=== PATIENT | female | born 1970 | race American Indian/Alaskan Native ===

== ENCOUNTER 2017-10-07 08:00 | Outpatient (CLI) | payer MEDICAID, MEDICARE ==
--- NOTE | 2017-10-07 09:14 | Mammography Report ---
BILATERAL MAMMOGRAM: FINDINGS: The breast tissue is extremely dense (>75% glandular). This may lower the sensitivity of mammography. No mass, distortion, suspicious calcification, or skin change is seen. There is no significant change when compared to her prior exams in February 2015. CAD was utilized. IMPRESSION: Negative mammogram. There is no mammographic evidence of malignancy. RECOMMENDATION: Follow-up per ACS guidelines. BI-RADS CATEGORY: 1 = Negative ACR BI-RADS MAMMOGRAPHIC CODES: 0 = Needs additional imaging evaluation; 1 = Negative; 2 = Benign; 3 = Probably benign; 4 = Suspicious; 5 = Malignant; 6 = Known biopsy-proven malignancy COMMENT: 1. Dense breast tissue, i.e., adenosis, fibrocystic changes, etc., may obscure an underlying neoplasm. 2. Approximately 10% of cancers are not detected with mammography. 3. A negative mammography report should not delay biopsy if a clinically suspicious mass is present. COMMENT: Patient follow-up letters are generated in [employer].
== END 2017-10-07 08:01 | disposition home or self-care (01) ==
LOC: SPVWC 08:00 → MAMMO 08:01
PROVIDERS: ATTEND Obstetrics & Gynecology
DX: Z12.31 Encounter for screening mammogram for malignant neoplasm of breast (principal)
CPT/HCPCS: 77067

== ENCOUNTER 2018-06-25 14:29 | Observation (INO) | payer MEDICAID ==
--- NOTE | 2018-06-25 14:56 | History and Physical Report ---
History of Present Illness Date of examination: 06/25/18 Date of admission: 06/25/2018 Chief complaint: fatigue and heavy vaginal bleeding History of present illness: 47y/o with a known history of uterine fibroids. She presents to the office with the complaint of worsening fatigue and malaise. She has experienced palpitations with exertion. Unable to perform basic tasks. Her vaginal bleeding is worsening. She has elected to undergo a robotic hysterectomy that is scheduled for July 08. H/H in the office today is 5.7/19.4 respectively. Past History Past Medical History: other (anemia; uterine fibroids) Past Surgical History: no surgical history Social history: single - Obstetrical History : 2 Para: 2 Hx # Term Pregnancies: 1 Number of Pregnancies: 1 Spontaneous Abortions: 0 Induced : 0 Number of Living Children: 2 Medications and Allergies Allergies Allergy/AdvReac Type Severity Reaction Status Date / Time No Known Allergies Allergy Unverified 02/20/15 09:39 Review of Systems Constitutional: fatigue, weakness, malaise, lethargy Genitourinary: vaginal bleeding - Physical Exam Breasts: Positive: deferred Cardiovascular: Regular rate Lungs: Positive: Clear to auscultation Abdomen: Positive: normal appearance Results All other labs normal. Assessment and Plan - Patient Problems (1) Severe anemia Status: Acute Plan to address problem: admit for transfusion of blood products (2) Menorrhagia Status: Acute (3) Fatigue Status: Acute
[2018-06-25] MEDS ORDERED: ZOFRAN IV PRN (14:57)
[2018-06-25] MEDS ORDERED: TYLENOL PO PRN (14:57)
[2018-06-25] MEDS ORDERED: NACL 0.9% 500 ML 500 ML IV ONE (14:57)
[2018-06-25] MEDS ORDERED: BENADRYL PO ONE (14:57)
[2018-06-25] MEDS ORDERED: D5LR 1,000 ML IV SCH (15:00)
[2018-06-26] MEDS ORDERED: NACL 0.9% 500 ML 500 ML IV ONE (01:00)
[2018-06-26] MEDS ORDERED: BENADRYL PO ONE (04:00)
--- NOTE | 2018-06-26 08:35 | Progress Note ---
Assessment and Plan A: Symptomatic Anemia Uterine Fibroids New-onset bilateral leg pain with questionable history of DVT last year P: Obtain bilateral lower cavity Doppler studies immediately Plan to request medical records to clarify possible history of DVT Plan to discharge home if Doppler study is normal after transfusion of 3 units of packed red blood cells Subjective - Subjective Date of service: 06/26/18 Principal diagnosis: Symptomatic anemia Interval history: This morning, the patient complains of bilateral calf pain left greater than right. She also now reports a history of lower left extremity DVT last year. She reports that she does have leg pain each night but usually goes away by sunrise. She says that she typically takes pain medication such as ibuprofen to alleviate the pain when she is at home. She denies vaginal bleeding today. Patient reports: appetite normal, voiding normally, ambulating normally Objective - Vital Signs Latest vital signs: Vital Signs Temp Pulse Pulse Resp BP BP Pulse Ox 06/26/18 08:10 98.5 F 70 18 94/61 99 06/26/18 07:55 98.7 F 75 20 92/57 99 06/26/18 05:11 98.6 F 83 20 100/67 100 06/26/18 02:08 98.4 F 20 96/60 100 06/26/18 01:38 98.6 F 77 20 95/60 100 06/26/18 01:29 98.6 F 77 20 95/60 100 06/26/18 01:08 98.6 F 75 20 95/55 99 06/26/18 00:53 98.6 F 78 20 98/56 06/25/18 22:00 83 20 06/25/18 20:35 98.3 F 87 18 91/57 98 06/25/18 19:53 78 18 Intake and Output 06/25/18 06/26/18 06/26/18 22:59 06:59 14:59 Intake Total 690 370 0 Output Total 1 300 Balance 689 70 0 Intake: Oral 240 Intake, Free Water 120 Blood Product 250 0 Leukoreduced Red Blood 250 Cells Unit [id number] Leukoreduced Red Blood 0 Cells Unit [id number] Other 450 Output: Urine 1 300 Void 1 300 Other: Intake, Other Source Saline Solution Total, Intake Amount 690 Total, Output Amount 1 300 Voiding Method Toilet Toilet # Voids 3 Weight 56.245 kg - Exam Breasts: Present: deferred Cardiovascular: Present: Regular rate Lungs: Present: Clear to auscultation Abdomen: Present: soft Extremities: Present: other (Absent Homans). Absent: tenderness - Labs Labs: Abnormal lab results 06/25/18 Range/Units 20:00 Crossmatch See Detail
[2018-06-26 13:08] VITALS: BP 98/61
--- NOTE | 2018-06-26 15:18 | Discharge Summary ---
Providers - Providers Date of Admission: 06/25/18 17:47 Date of discharge: 06/26/18 Attending physician: JULIANNE BARTON Primary care physician: JULIANNE BARTON Hospitalization Reason for admission: other (symptomatic anemia) Procedure details: Blood transfusion Discharge diagnosis: other (symptomatic anemia) Hospital course: The patient was admitted for symptomatic anemia with plans for hysterectomy in a few weeks secondary to symptomatic uterine fibroids. During her hospitalization, the patient complained of bilateral leg pain which was evaluated with bilateral Doppler studies which were negative for DVT. The patient received 3 units of packed red blood cells and a post transfusion hemoglobin and hematocrit were collected. The patient was then discharged home with plans to follow-up for her preoperative visit with Dr. Velma Gaytan as scheduled. Condition at discharge: Stable Disposition: DC-01 TO HOME OR SELFCARE - Discharge Diagnoses (1) Fibroid uterus Status: Acute Qualifiers: Uterine leiomyoma location: unspecified location Qualified Code(s): D25.9 - Leiomyoma of uterus, unspecified (2) Fatigue Status: Acute Qualifiers: Fatigue type: unspecified Qualified Code(s): R53.83 - Other fatigue (3) Menorrhagia Status: Acute Qualifiers: Menorrahagia type: with regular cycle Qualified Code(s): N92.0 - Excessive and frequent menstruation with regular cycle (4) Severe anemia Status: Acute Plan - Provider Discharge Summary Activity: routine Diet: routine Additional instructions: [] Smoking cessation referral if applicable(refer to patient education folder for contact #) [] Refer to [facility]'s [facility] Booklet Call your doctor immediately for: * Fever > 100.5 * Heavy vaginal bleeding ( >1 pad per hour) * Severe persistent headache * Shortness of breath * Reddened, hot, painful area to leg or breast * Drainage or odor from incision. * Keep incision clean and dry at all times and follow doctor's instructions regarding bathing/showering - Follow up plan Follow up: JULIANNE BARTON MD [Primary Care Provider] - 07/06/18 (His follow-up with Dr. Barton at your previously scheduled preoperative appointment)
[2018-06-26 15:31] LABS: Hematocrit 30.9 % (30.3-42.9); Hemoglobin 9.7 gm/dl (10.1-14.3)
== END 2018-06-26 17:10 | disposition home or self-care (01) ==
LOC: 3A 14:29 → UNDOADMOB 14:29 → OB 17:47
PROVIDERS: ADMIT Obstetrics & Gynecology; ATTEND Obstetrics & Gynecology
DX: D64.9 Anemia, unspecified (principal); N92.0 Excessive and frequent menstruation with regular cycle; R53.83 Other fatigue
CPT/HCPCS: 36415; 36430; 85014; 85018; 86850; 86900; 86901; 86920; 93970; G0378; G0379; J7040; J7121; P9016

== ENCOUNTER 2018-07-08 06:46 | Observation (INO) | payer MEDICAID ==
[2018-07-06 11:28] LABS: Hematocrit 32.8 % (30.3-42.9); Mean Corpuscular HGB Conc 31 % (30-34); Mean Corpuscular Hemoglobin 22 pg (28-32); Mean Corpuscular Volume 71 fl (79-97); Platelet Count 204 K/mm3 (140-440); Red Blood Count 4.62 M/mm3 (3.65-5.03); Red Cell Distribution Width 30.4 % (13.2-15.2)
[2018-07-06 11:29] LABS: Basophils % (Auto) 0.6 % (0.0-1.8); Eosinophils # (Auto) 0.1 K/mm3 (0.0-0.4); Lymphocytes # (Auto) 1.6 K/mm3 (1.2-5.4); Lymphocytes % (Auto) 24.8 % (13.4-35.0); Monocytes # (Auto) 0.6 K/mm3 (0.0-0.8)
--- NOTE | 2018-07-06 12:11 | Anesthesia Consultation ---
Anesthesia Consult and Med Hx Date of service: 07/06/18 - Airway Anesthetic Teeth Evaluation: Good ROM Head & Neck: Adequate Mental/Hyoid Distance: Adequate Mallampati Class: Class I Intubation Access Assessment: Good - Pulmonary Exam CTA: Yes - Cardiac Exam Cardiac Exam: RRR - Pre-Operative Health Status ASA Pre-Surgery Classification: ASA2 Proposed Anesthetic Plan: General Nerve Block: tap block - Central Nervous System Hx Psychiatric Problems: No - Hematic Hx Anemia: Yes - Other Systems Hx Alcohol Use: Yes (Occas) Hx Cancer: No
[~2018-07-08 06:46] MED LIST: LACTATED RINGERS 1,000 ML IV SCH; NEURONTIN PO NR; SUBLIMAZE IV ONE; VERSED IV NR
--- NOTE | 2018-07-08 07:40 | History and Physical Report ---
History of Present Illness Date of examination: 07/08/18 Date of admission: 07/08/2018 Chief complaint: dysfunctional bleeding and fibroids History of present illness: 47y/o with dysfunctional uterine bleeding and anemia. The patient was recently admitted for transfusion of blood for severe anemia. Her hemoglobin had fallen to 5.3. Pelvic ultrasound demonstrates multiple uterine fibroids with the largest being 7.8cm. The patient elects for surgical management of her symptoms Past History Past Medical History: other (anemia; fibroids) Past Surgical History: no surgical history Social history: single - Obstetrical History : 2 Para: 2 Hx # Term Pregnancies: 1 Number of Pregnancies: 1 Spontaneous Abortions: 0 Induced : 0 Number of Living Children: 2 Medications and Allergies Allergies Allergy/AdvReac Type Severity Reaction Status Date / Time No Known Allergies Allergy Unverified 07/06/18 10:34 Home Medications Medication Instructions Recorded Confirmed Last Taken Type No Known Home Medications [No 07/06/18 07/06/18 Unknown History Reported Home Medications] Active Meds: Active Medications Celecoxib (Celebrex) 200 mg PO PREOP NR Stop: 07/08/18 10:00 Gabapentin (Neurontin) 300 mg PO PREOP NR Stop: 07/08/18 10:00 Lactated Ringer's (Lactated Ringers) 1,000 mls @ 100 mls/hr IV DIRECT BINDU Midazolam HCl (Versed) 2 mg IV PREOP NR Stop: 07/08/18 23:59 Review of Systems All systems: negative Constitutional: fatigue, weakness Genitourinary: vaginal bleeding, pelvic pain - Vital Signs Vital signs: Vital Signs Temp Pulse Resp BP 98.9 F 64 16 106/66 07/06/18 10:45 07/06/18 10:45 07/06/18 10:45 07/06/18 10:45 Temp Pulse Resp BP Pulse Ox 98.9 F 64 16 106/66 07/06/18 10:45 07/06/18 10:45 07/06/18 10:45 07/06/18 10:45 - Physical Exam Breasts: Positive: deferred Cardiovascular: Regular rate Lungs: Positive: Clear to auscultation Abdomen: Positive: normal appearance Results Result Diagrams: 07/06/18 10:50 All other labs normal. Assessment and Plan - Patient Problems (1) Fatigue Current Visit: No Status: Acute Qualifiers: Plan to address problem: admit for a robotic hysterectomy (2) Fibroid uterus Current Visit: No Status: Acute Qualifiers: (3) Menorrhagia Current Visit: No Status: Acute Qualifiers: (4) Severe anemia Current Visit: No Status: Acute
[2018-07-08] MEDS ORDERED: MARCAINE 0.25% INFILTRATI ONE (07:43)
[2018-07-08] MEDS ORDERED: DECADRON ONE ×2 (07:43→09:46)
[2018-07-08] MEDS ORDERED: DILAUDID IV PRN (07:49)
--- NOTE | 2018-07-08 07:49 | Anesthesia Day of Surgery ---
Anesthesia Day of Surgery - Day of Surgery Patient Examined: Yes Patient H&P Reviewed: Yes Patient is NPO: Yes
[2018-07-08] MEDS ORDERED: ANCEF/STERILE WATER 2 GM/20 ML 2 GM/20 ML SYRINGE IV SCH (08:00)
[2018-07-08] MEDS ORDERED: NEURONTIN PO NR (08:00)
[2018-07-08] MEDS ORDERED: SUBLIMAZE ONE ×3 (08:35→11:27)
[2018-07-08] MEDS ORDERED: XYLOCAINE MPF 2% ONE (09:21)
[2018-07-08] MEDS ORDERED: ZEMURON IV ONE (09:21)
[2018-07-08] MEDS ORDERED: DIPRIVAN 10 MG/ML IV ONE (09:22)
[2018-07-08] MEDS ORDERED: NEOSPORIN GU IR ONE (10:00)
[2018-07-08] MEDS ORDERED: GELFOAM POWDER 1GM MM ONE ×2 (10:32→10:45)
[2018-07-08] MEDS ORDERED: THROMBIN (BOVINE) TP ONE ×2 (10:32→10:45)
[2018-07-08] MEDS ORDERED: NACL 0.9% IR ONE ×2 (10:45)
[2018-07-08] MEDS ORDERED: TORADOL ONE (11:25)
[2018-07-08] MEDS ORDERED: ROBINUL ONE (11:29)
[2018-07-08] MEDS ORDERED: BLOXIVERZ ONE (11:29)
[2018-07-08] MEDS ORDERED: NARCAN 0.4 MG/1 ML IV PRN (11:45)
--- NOTE | 2018-07-08 11:45 | Operative Report ---
Operative Report Operative Report: Date of surgery: 07/08/2018 Preoperative diagnoses: Symptomatic uterine fibroids; menorrhagia; iron deficiency anemia Postoperative diagnoses: Same as above; pelvic adhesions Procedure: Robotic hysterectomy; bilateral salpingectomy; lysis of adhesions Surgeon: Dina Redding M.D. [facility] Administrator: Clarice Ellsworth Anesthesia: Gen. endotracheal anesthesia Estimated blood loss: 500 mL Pathology: Uterus, cervix, leiomyomas, bilateral tubes Indication: 47-year-old with a history of symptomatic uterine fibroids. The patient has experienced severe menorrhagia that has caused iron deficiency anemia requiring transfusion of blood products Procedure: The patient was taken to the operating room and given general endotracheal anesthesia without complication. She is prepped and draped in a normal sterile fashion. A bivalve speculum was placed in the patient's vagina and a single- tooth tenaculum placed on the anterior lip of the cervix. The uterus was sounded with the uterine sound. A [employer] uterine manipulator was placed in the bivalve speculum was then removed. Attention was then turned to the patient's abdomen where a millimeter supra umbilical skin incision was then made. A Veress needle was placed and peritoneal entry was verified water-filled syringe. Insufflation of the peritoneal cavity was performed with CO2 gas. The 12 mm trocar was then placed under direct visualization. An additional 8 mm trocar was placed on the patient's left and right lateral side just opposite of the supraumbilical trocar. An additional 5 mm right lateral trocar was then placed as the accessory port. There was noted to be multiple omental adhesions to the anterior abdominal wall. The uterus was noted to be significantly enlarged with multiple leiomyomas. The monopolar scissors were used in order to lyse the adhesions to improve visualization. The patient was then placed in steep Trendelenburg. The da Jolie robot was then engaged. A fenestrated forcep was placed in arm 2 and a vessel sealer was placed in arm 1. The surgeon then transferred to the surgical console. The mesosalpinx was then isolated on the right. The vessel sealer was used to coagulate the mesosalpinx which was then transected. The tube was transected from the ovary. The tubo- ovarian ligament was then coagulated and transected. The round ligament was then coagulated and transected also. The vesicouterine peritoneum was then entered from the patient's right side. The uterine vessels were then coagulated with the vessel sealer. The vessels were then transected . Attention was then turned to the patient's left side where the tubo-ovarian ligament and mesosalpinx were again isolated coagulated and transected. The vesical peritoneum was then entered from the left and joined in the midline. Peritoneum was reflected off of the lower uterine segment. Uterine vessels were then coagulated and then transected. The myomectomy had to be performed in order to decompress the enlarged uterus. An incision was made over the serosa with the monopolar scissors. Sharp dissection was used in order to extract the leiomyomas from the uterine body. Approximately 4 leiomyomas have to be extracted from the uterus in order to facilitate delivery through the vagina.The blood supply to the uterus was adequately contained, a posterior colpotomy was made. The V care ring was visualized. Posterior colpotomy was created with the monopolar scissors. The incision was continued circumferentially until anterior colpotomy was made. The cervix and uterus were amputated from the vaginal cuff. The uterus was then removed along with the leiomyoma and tubes bilaterally through the vagina and a warm laparotomy sponge was placed and maintain the pneumoperitoneum. The vaginal cuff was then closed in a running fashion with V lock suture. Irrigation of the pelvis was performed. Gelfoam with thrombin was applied to the incision. The supraumbilical 12 mm trocar site was closed with the [employer] [place] device. The skin was then reapproximated with 4-0 Monocryl. The tissue was sent to pathology which included the cervix and uterus. The patient was then successfully extubated. She was then taken to the recovery room in stable condition. All sponge laps and needle counts were correct x2.
[2018-07-08] MEDS ORDERED: MILK OF MAGNESIA PO PRN (11:46)
[2018-07-08] MEDS ORDERED: ZOFRAN IV PRN (11:46)
[2018-07-08] MEDS ORDERED: PERCOCET 5/325 PO PRN (11:46)
[2018-07-08] MEDS ORDERED: MOTRIN PO PRN (11:46)
[2018-07-08] MEDS ORDERED: AMBIEN PO PRN (11:46)
[2018-07-08] MEDS ORDERED: MORPHINE PCA 30MG/30ML IV SCH (12:00)
[2018-07-08] MEDS ORDERED: TYLENOL PO PRN (12:00)
[2018-07-08] MEDS ORDERED: DILAUDID ONE (12:52)
[2018-07-08] MEDS ORDERED: LACTATED RINGERS 1,000 ML ONE (13:41)
--- NOTE | 2018-07-08 14:34 | Post Anesthesia Evaluation ---
- Post Anesthesia Evaluation Patient Participated: Yes Airway Patent: Yes Stable Respiratory Function: Yes Nausea/Vomiting: No Temp > 96.8F: Yes Pain Manageable: Yes Adequeate Hydration: Yes Anesthesia Complications: No
[2018-07-08] MEDS: TORADOL IV SCH (18:36)
[2018-07-09] MEDS: TORADOL IV SCH ×2 (00:46→05:41)
[2018-07-09] MEDS: D5LR 1,000 ML IV SCH ×2 (00:46→05:42)
[2018-07-09 04:33] LABS: Hematocrit 29.1 % (30.3-42.9); Hemoglobin 8.8 gm/dl (10.1-14.3)
--- NOTE | 2018-07-09 08:28 | Progress Note ---
Assessment and Plan - Patient Problems (1) Fatigue Current Visit: No Status: Acute Qualifiers: Plan to address problem: Patient is doing well Will advance diet as tolerated Discharge home once she meets discharge criteria (2) Fibroid uterus Current Visit: No Status: Acute Qualifiers: (3) Menorrhagia Current Visit: No Status: Acute Qualifiers: (4) Severe anemia Current Visit: No Status: Acute Subjective - Subjective Date of service: 07/09/18 Interval history: The patient reports feeling better this morning. Her Pavon has been removed but she has not voided as of yet. She states that her pain is well-controlled. Patient reports: appetite normal, pain well controlled Objective - Vital Signs Latest vital signs: Vital Signs Temp Pulse Resp BP BP Pulse Ox 07/09/18 04:00 98.6 F 69 16 83/55 07/08/18 23:30 98.7 F 70 18 90/56 07/08/18 19:36 98.0 F 18 97/55 07/08/18 15:37 97.7 F 61 20 96/61 07/08/18 13:45 97.4 F L 65 14 101/56 100 07/08/18 13:30 63 14 98/64 100 07/08/18 13:17 14 07/08/18 13:15 65 12 93/60 99 07/08/18 13:00 52 L 10 L 100/65 100 07/08/18 12:47 14 07/08/18 12:45 55 L 10 L 104/65 100 07/08/18 12:30 55 L 12 91/58 100 07/08/18 12:25 62 16 96/65 100 07/08/18 12:20 59 L 13 91/59 100 07/08/18 12:15 97.0 F L 72 12 97/64 100 07/08/18 09:15 97.5 F L 72 15 111/66 100 07/08/18 09:10 67 14 104/66 100 07/08/18 09:05 66 11 L 108/66 100 07/08/18 09:00 62 15 103/57 100 07/08/18 08:55 62 15 96/59 100 07/08/18 08:50 60 15 97/56 100 07/08/18 08:45 66 11 L 101/53 100 07/08/18 08:40 65 15 97/62 100 07/08/18 08:35 66 12 93/56 100 Intake and Output 07/08/18 07/09/18 07/09/18 22:59 06:59 14:59 Intake Total 500 493.333 Output Total 1700 Balance 500 -1206.667 Intake: IV 493.333 D5lr 1,000 ml @ 125 mls/ 493.333 hr IV DIRECT BINDU Rx#: [id number] Oral 500 Output: Urine 1700 Indwelling Catheter 1700 Other: Total, Intake Amount 500 Total, Output Amount 800 - Exam Abdomen: Present: normal appearance Incision: Present: normal - Labs Labs: Abnormal lab results 07/09/18 Range/Units 04:00 Hgb 8.8 L (10.1-14.3) gm/dl Hct 29.1 L (30.3-42.9) %
--- NOTE | 2018-07-09 08:29 | Discharge Summary ---
Providers - Providers Date of Admission: 07/08/18 11:46 Date of discharge: 07/09/18 Attending physician: JULIANNE BARTON Primary care physician: ERICK ZHAO Hospitalization Reason for admission: other (uterine fibroids and menorrhagia) Procedure: other (robotic hysterectomy and bilateral salpingectomy) Incision: normal Discharge diagnosis: other (uterine fibroids and menorrhagia) Hospital course: The patient was admitted the day of surgery and underwent a robotic hysterectomy and bilateral salpingectomy. Please see operative note for details of surgery. Postoperative course was unremarkable. Condition at discharge: Good Disposition: DC-01 TO HOME OR SELFCARE - Discharge Diagnoses (1) Fatigue Status: Acute Qualifiers: (2) Fibroid uterus Status: Acute Qualifiers: (3) Menorrhagia Status: Acute Qualifiers: (4) Severe anemia Status: Acute Plan - Discharge Medications Prescriptions: Docusate Sodium [Colace] 100 mg PO BID PRN #60 capsule PRN Reason: Constipation Ferrous Sulfate [Feosol 325 MG tab] 325 mg PO BID #60 tablet Ibuprofen [Motrin] 800 mg PO Q8HR PRN #60 tablet PRN Reason: Pain, Mild (1-3) Oxycodone HCl/Acetaminophen [Percocet 7.5/325 mg] 1 each PO Q6HR PRN #45 tablet PRN Reason: Pain - Provider Discharge Summary Activity: no sex for 6 weeks, no heavy lifting 4 weeks, no strenuous exercise Diet: routine Instructions: routine Additional instructions: [] Smoking cessation referral if applicable(refer to patient education folder for contact #) [] Refer to [facility]'s [facility] Booklet Call your doctor immediately for: * Fever > 100.5 * Heavy vaginal bleeding ( >1 pad per hour) * Severe persistent headache * Shortness of breath * Reddened, hot, painful area to leg or breast * Drainage or odor from incision. * Keep incision clean and dry at all times and follow doctor's instructions regarding bathing/showering Scheduled follow-up with Dr. Smith in 4 weeks - Follow up plan
[2018-07-09 11:44] VITALS: BP 89/49
== END 2018-07-09 14:10 | disposition home or self-care (01) ==
LOC: OR 06:46 → OB 11:46
PROVIDERS: ADMIT Obstetrics & Gynecology; ATTEND Obstetrics & Gynecology
DX: D25.9 Leiomyoma of uterus, unspecified (principal); N92.0 Excessive and frequent menstruation with regular cycle; D64.9 Anemia, unspecified; R53.83 Other fatigue; N88.8 Other specified noninflammatory disorders of cervix uteri
CPT/HCPCS: 36415; 58573; 64450; 84703; 85014; 85018; 85025; 86850; 86900; 86901; 88307; 96374; 96375; 96376; A4217; A4649; G0378; J0690; J1100; J1170; J1885; J2250; J2270; J2704; J2710; J3010; J7120; J7121; S2900

== ENCOUNTER 2018-07-10 22:34 | Inpatient (IN) | payer MEDICAID ==
[2018-07-10] MEDS ORDERED: ZOFRAN IV ONE (23:07)
[2018-07-10 23:54] LABS: Mean Corpuscular HGB Conc 30 % (30-34); Mean Corpuscular Volume 72 fl (79-97); Platelet Count 282 K/mm3 (140-440); Red Blood Count 4.14 M/mm3 (3.65-5.03)
[2018-07-10 23:55] LABS: Mean Corpuscular Hemoglobin 22 pg (28-32)
[2018-07-10 23:56] LABS: Red Cell Distribution Width 31.4 % (13.2-15.2)
[2018-07-11] MEDS ORDERED: MOTRIN PO ONE ×2 (00:17→00:21)
[2018-07-11] MEDS ORDERED: SUBLIMAZE IV ONE (00:59)
[2018-07-11] MEDS ORDERED: COLACE PO ONE (01:00)
[2018-07-11] MEDS ORDERED: NACL 0.9% 1000 ML 1,000 ML IV ONE (01:00)
--- NOTE | 2018-07-11 01:14 | Emergency Department Report ---
HPI - General Chief Complaint: Abdominal Pain Time Seen by Provider: 07/11/18 00:50 - HPI HPI: Room 7 The patient is a 47-year-old female presenting with chief complaint of abdominal pain and constipation. The patient is status post a partial hysterectomy by Dr. Redding 07/08/2018. The patient states for the past 4 days she has not had a bowel movement. Patient developed nausea and vomiting today and at 20:00 diffuse, pain greatest on the right side. Today the patient also noted bilateral lower extremity edema. There is no history of fever, dysuria or hematuria. The patient contacted the on-call MANPOWER DEVELOPMENT SPECIALIST tonight and was told to come to the ED for evaluation. The patient gives her pain a score of 10 /10 Location: Diffuse abdomen Duration: [See above] Quality: Pain Severity:10/10 Modifying factors: [see above] Context: [see above] Mode of transportation: [not driving] ED Past Medical Hx - Past Medical History Previous Medical History?: No - Surgical History Additional Surgical History: Partial Hysterectomy - Family History Family history: no significant - Social History Smoking Status: Never Smoker Substance Use Type: None (denies illicit drug use), Alcohol (occasional) - Medications Home Medications: Home Medications Medication Instructions Recorded Confirmed Last Taken Type Docusate Sodium [Colace] 100 mg PO BID PRN #60 capsule 07/09/18 Unknown Rx Ferrous Sulfate [Feosol 325 MG tab] 325 mg PO BID #60 tablet 07/09/18 Unknown Rx Ibuprofen [Motrin] 800 mg PO Q8HR PRN #60 tablet 07/09/18 Unknown Rx Oxycodone HCl/Acetaminophen 1 each PO Q6HR PRN #45 tablet 07/09/18 Unknown Rx [Percocet 7.5/325 mg] ED Review of Systems ROS: Stated complaint: SURGERY WED/ N/V Other details as noted in HPI Constitutional: denies: fever Eyes: denies: eye pain ENT: denies: throat pain Respiratory: no symptoms reported Cardiovascular: denies: chest pain Endocrine: no symptoms reported Gastrointestinal: abdominal pain, nausea, vomiting, constipation Genitourinary: denies: dysuria Musculoskeletal: denies: back pain Neurological: denies: headache Physical Exam - Physical Exam Vital Signs: Vital Signs 07/10/18 22:54 Temperature 98.7 F Pulse Rate 95 H Respiratory 16 Rate Blood Pressure 105/64 O2 Sat by Pulse 100 Oximetry Physical Exam: GENERAL: The patient is well-developed well-nourished female sitting on stretcher appearing to be in moderate discomfort. [] HEENT: Normocephalic. Atraumatic. Extraocular motions are intact. Patient has moist mucous membranes. NECK: Supple. Trachea midline CHEST/LUNGS: Clear to auscultation. There is no respiratory distress noted. HEART/CARDIOVASCULAR: Regular. There is no tachycardia. There is no gallop rub or murmur. ABDOMEN: Abdomen is soft, with diffuse tenderness. Patient has normal bowel sounds. There is no abdominal distention. SKIN: There is no rash. There is 2+ bilateral lower extremity nonpitting edema. There is no diaphoresis. Laparoscopic abdominal surgical sites clean dry and intact without overlying skin changes/erythema NEURO: The patient is awake, alert, and oriented. The patient is cooperative. The patient has normal speech MUSCULOSKELETAL: There is no evidence of acute injury. ED Course Vital Signs 07/10/18 22:54 Temperature 98.7 F Pulse Rate 95 H Respiratory 16 Rate Blood Pressure 105/64 O2 Sat by Pulse 100 Oximetry - Consultations Consultation #1: 07/11/18 03:47 MANPOWER DEVELOPMENT SPECIALIST paged 07/11/18 03:[address] Ellsworth-Will admit the patient to the hospital ED Medical Decision Making - Lab Data Result diagrams: 07/10/18 23:10 07/10/18 23:10 Laboratory Tests 07/10/18 07/10/18 07/11/18 23:10 23:10 Unknown WBC 14.4 H RBC 4.14 Hgb 9.0 L Hct 30.0 L MCV 72 L MCH 22 L MCHC 30 RDW 31.4 H Plt Count 282 Add Manual Diff Complete Total Counted 100 Seg Neuts % (Manual) 87.0 H Band Neutrophils % 0 Lymphocytes % (Manual) 10.0 L Reactive Lymphs % (Man) 0 Monocytes % (Manual) 3.0 Eosinophils % (Manual) 0 Basophils % (Manual) 0 Metamyelocytes % 0 Myelocytes % 0 Promyelocytes % 0 Blast Cells % 0 Nucleated RBC % Not Reportable Seg Neutrophils # Man 12.5 H Band Neutrophils # 0.0 Lymphocytes # (Manual) 1.4 Abs React Lymphs (Man) 0.0 Monocytes # (Manual) 0.4 Eosinophils # (Manual) 0.0 Basophils # (Manual) 0.0 Metamyelocytes # 0.0 Myelocytes # 0.0 Promyelocytes # 0.0 Blast Cells # 0.0 WBC Morphology Not Reportable Hypersegmented Neuts Not Reportable Hyposegmented Neuts Not Reportable Hypogranular Neuts Not Reportable Smudge Cells Not Reportable Toxic Granulation Not Reportable Toxic Vacuolation Not Reportable Dohle Bodies Not Reportable Pelger-Huet Anomaly Not Reportable Brenna Rods Not Reportable Platelet Estimate Consistent w auto Clumped Platelets Not Reportable Plt Clumps, EDTA Not Reportable Large Platelets 1+ Giant Platelets Not Reportable Platelet Satelliting Not Reportable Plt Morphology Comment Not Reportable RBC Morphology Not Reportable Dimorphic RBCs Not Reportable Polychromasia Not Reportable Hypochromasia 2+ Poikilocytosis Not Reportable Anisocytosis 1+ Microcytosis Not Reportable Macrocytosis Not Reportable Spherocytes Not Reportable Pappenheimer Bodies Not Reportable Sickle Cells Not Reportable Target Cells Not Reportable Tear Drop Cells Not Reportable Ovalocytes 1+ Helmet Cells Not Reportable Mathur-Stark Bodies Not Reportable [place] Rings Not Reportable Foristell Cells Not Reportable Bite Cells Not Reportable Crenated Cell Not Reportable Elliptocytes Not Reportable Acanthocytes (Spur) Not Reportable Rouleaux Not Reportable Hemoglobin C Crystals Not Reportable Schistocytes Not Reportable Malaria parasites Not Reportable Alberto Bodies Not Reportable Hem Pathologist Commnt No Sodium 137 Potassium 5.1 H Chloride 100.8 Carbon Dioxide 23 Anion Gap 18 BUN 14 Creatinine 1.1 Estimated GFR > 60 BUN/Creatinine Ratio 13 Glucose 110 H Calcium 9.3 Total Bilirubin 0.20 Direct Bilirubin < 0.2 Indirect Bilirubin 0.0 AST 18 ALT 9 Alkaline Phosphatase 54 NT-Pro-B Natriuret Pep 61.72 Total Protein 6.9 Albumin 4.1 Albumin/Globulin Ratio 1.5 Lipase 13 - Radiology Data Radiology results: report reviewed (CT abdomen and pelvis), image reviewed (CT abdomen and pelvis) [facility] [address] [place] [address] Cat Scan Report Signed Patient: LIZ POSADA MR#: [id number] : 1969 Acct:[id number] Age/Sex: 47 / F ADM Date: 07/10/18 Loc: ED Attending Dr: Ordering Physician: ANDRZEJ SHELDON MD Date of Service: 07/11/18 Procedure(s): CT abdomen pelvis w con Accession Number(s): [id number] cc: ANDRZEJ SHELDON MD FINAL REPORT EXAM: CT ABDOMEN PELVIS W CON HISTORY: diffuse abd pain, constipation. Recent hyst TECHNIQUE: Dynamic helical CT scan through the abdomen and pelvis during and again after intravenous injection of iodinated contrast. Images are reconstructed in the sagittal and coronal planes. Oral contrast was not given. PRIORS: None. FINDINGS: The lung bases are clear. The liver, gallbladder, pancreas, spleen and adrenal glands appear normal. The kidneys appear normal. There is a moderate amount of free fluid in the pelvis, pericolic gutters and right upper quadrant. There is a small amount of air in the bladder. The uterus is absent. The ovaries appear grossly normal. The stomach appears grossly within normal limits. There are no abnormally dilated loops of bowel or acute inflammatory changes. A normal-appearing appendix is identified. There is a relatively large amount of stool throughout the colon. The abdominal aorta has a normal diameter. There is graying of the suprapubic subcutaneous fat. The bones are unremarkable for age. IMPRESSION: 1. Moderate amount of free fluid most likely related to recent surgery. 2. Graying of the suprapubic subcutaneous fat. Question developing wound infection 3. Findings suggest constipation Transcribed By: MLG Dictated By: VICKY MONDRAGON MD Electronically Authenticated By: VICKY MONDRAGON MD Signed Date/Time: 07/11/18343 DD/ 3 TD/TT: 07/11/18343 - Differential Diagnosis constipation, small bowel obstruction, postoperative infection Critical care attestation.: If time is entered above; I have spent that time in minutes in the direct care of this critically ill patient, excluding procedure time. ED Disposition Clinical Impression: Postoperative abdominal pain, Constipation, Leukocytosis Disposition: OP ADMIT IP TO THIS HOSP Is pt being admited?: Yes Does the pt Need Aspirin: No Condition: Fair Instructions: Abdominal Pain (ED) Referrals: PRIMARY CARE, [Primary Care Provider] - 3-5 Days Time of Disposition: 03:56
[2018-07-11 01:23] LABS: BUN/Creatinine Ratio 13; Blood Urea Nitrogen 14 mg/dL (7-17); Calcium 9.3 mg/dL (8.4-10.2); Hemolysis Index 0
[2018-07-11 01:53] LABS: Alanine Aminotransferase 9 units/L (7-56); Albumin 4.1 g/dL (3.9-5); Lipase 13 units/L (13-60)
[2018-07-11 02:23] LABS: Bilirubin,Direct < 0.2 mg/dL (0-0.2)
[2018-07-11 02:42] LABS: Basophils % (Manual) 0 % (0.0-1.8); Eosinophils % (Manual) 0 % (0.0-4.3); Total Cells Counted 100
[2018-07-11 02:43] LABS: Hypochromasia 2+; Ovalocytes 1+
[2018-07-11 02:44] LABS: Anisocytosis 1+; Large Platelets 1+; Platelet Estimate Consistent w Auto
[2018-07-11] MEDS ORDERED: DILAUDID IV ONE (02:52)
--- NOTE | 2018-07-11 03:42 | Cat Scan Report ---
FINAL REPORT EXAM: CT ABDOMEN PELVIS W CON HISTORY: diffuse abd pain, constipation. Recent hyst TECHNIQUE: Dynamic helical CT scan through the abdomen and pelvis during and again after intravenous injection of iodinated contrast. Images are reconstructed in the sagittal and coronal planes. Oral contrast was not given. PRIORS: None. FINDINGS: The lung bases are clear. The liver, gallbladder, pancreas, spleen and adrenal glands appear normal. The kidneys appear normal. There is a moderate amount of free fluid in the pelvis, pericolic gutters and right upper quadrant. There is a small amount of air in the bladder. The uterus is absent. The ovaries appear grossly normal. The stomach appears grossly within normal limits. There are no abnormally dilated loops of bowel or acute inflammatory changes. A normal-appearing appendix is identified. There is a relatively large amount of stool throughout the colon. The abdominal aorta has a normal diameter. There is graying of the suprapubic subcutaneous fat. The bones are unremarkable for age. IMPRESSION: 1. Moderate amount of free fluid most likely related to recent surgery. 2. Graying of the suprapubic subcutaneous fat. Question developing wound infection 3. Findings suggest constipation
[2018-07-11] MEDS ORDERED: NARCAN 0.4 MG/1 ML IV PRN (04:03)
[2018-07-11] MEDS: MORPHINE IV PRN ×2 (05:46→10:47)
[2018-07-11] MEDS ORDERED: CITRATE OF MAGNESIA PO ONE (06:00)
--- NOTE | 2018-07-11 10:21 | History and Physical Report ---
History of Present Illness Date of examination: 07/11/18 Date of admission: 07/11/18 04:01 Chief complaint: abdominal pain History of present illness: Pt is a 47 year old female s/p robotic hysterectomy, bilateral salpingectomy and lysis of adhesions on 07/08/18 secondary to dysfunctional uterine bleeding, uterine fibroids, and symptomatic anemia, who reports worsening abdominal pain over the past day. She has not had a bowel movement and is passing minimal flatus. She reports not taking Motrin because she thought she could only take the Percocet. She reports some nausea but denies emesis at this time. She reports a chronic constipation issue for the past few months, even prior to her hysterectomy. She denies vaginal bleeding. CT scan of abdomen/pelvic obtained in the ED revealed constipated colon and possible evolving wound infection in suprapubic subcutaneous fat. 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 surgery (robotic hysterectomy per HPI on ) TRAINING ANALYST History: fibroids Social history: - Obstetrical History : 2 Para: 2 Medications and Allergies Allergies Allergy/AdvReac Type Severity Reaction Status Date / Time No Known Allergies Allergy Unverified 07/06/18 10:34 Home Medications Medication Instructions Recorded Confirmed Last Taken Type Docusate Sodium [Colace] 100 mg PO BID PRN #60 capsule 07/09/18 Unknown Rx Ibuprofen [Motrin] 800 mg PO Q8HR PRN #60 tablet 07/09/18 Unknown Rx Oxycodone HCl/Acetaminophen 1 each PO Q6HR PRN #45 tablet 07/09/18 Unknown Rx [Percocet 7.5/325 mg] RX: Ferrous Sulfate [Feosol 325 MG 325 mg PO BID #60 tablet 07/09/18 Unknown Rx tab] Active Meds: Active Medications Bisacodyl (Dulcolax) 10 mg [place] QDAY BINDU Morphine Sulfate (Morphine) 2 mg IV Q4H PRN PRN Reason: Pain, Moderate (4-6) Last Admin: 07/11/18 05:46 Dose: 2 mg Naloxone HCl (Narcan 0.4 Mg/1 Ml) 0.1 mg IV Q2MIN PRN PRN Reason: Res Rate </= 8 or 02 SAT < 92% Ondansetron HCl (Zofran) 4 mg IV Q8H PRN PRN Reason: Nausea And Vomiting Oxycodone/Acetaminophen (Percocet 5/325) 2 tab PO Q4H PRN PRN Reason: Pain, Moderate (4-6) Review of Systems All systems: negative - Vital Signs Vital signs: Vital Signs Temp Pulse Resp BP Pulse Ox 98.7 F 89 16 105/64 100 07/10/18 22:45 07/10/18 22:45 07/10/18 22:45 07/10/18 22:45 07/10/18 22:45 Temp Pulse Resp BP Pulse Ox 98.1 F 82 20 107/73 100 07/11/18 07:21 07/11/18 07:21 07/11/18 07:21 07/11/18 07:21 07/11/18 07:21 - Physical Exam Breasts: Positive: deferred Cardiovascular: Regular rate Lungs: Positive: Clear to auscultation Abdomen: Positive: soft, distention (mild), abnormal bowel sounds (hypoactive ) , other (incisions intact) Genitourinary (Female): Positive: normal external genitalia Extremities: Positive: edema Results Result Diagrams: 07/10/18 23:10 07/10/18 23:10 Abnormal lab results 07/10/18 07/10/18 Range/Units 23:10 23:10 WBC 14.4 H (4.5-11.0) K/mm3 Hgb 9.0 L (10.1-14.3) gm/dl Hct 30.0 L (30.3-42.9) % MCV 72 L (79-97) fl MCH 22 L (28-32) pg RDW 31.4 H (13.2-15.2) % Seg Neuts % (Manual) 87.0 H (40.0-70.0) % Lymphocytes % (Manual) 10.0 L (13.4-35.0) % Seg Neutrophils # Man 12.5 H (1.8-7.7) K/mm3 Potassium 5.1 H (3.6-5.0) mmol/L Glucose 110 H (65-100) mg/dL All other labs normal. Assessment and Plan A: Abdominal Pain Constipation Lower Extremity Edema s/p robotic hysterectomy on 07/08/18 P: Admit for observation Magnesium citrate, Dulcolax suppository Toradol IV x 24 hrs Encouraged ambulation Monitor clinically
[2018-07-11] MEDS: DULCOLAX PR SCH (10:49)
[2018-07-11] MEDS ORDERED: LASIX IV ONE (14:25)
[2018-07-11] MEDS: TORADOL IV PRN (17:18)
[2018-07-11] MEDS ORDERED: LASIX ONE (17:27)
[2018-07-11] MEDS: LACTATED RINGERS 1,000 ML IV SCH ×2 (17:31→20:16)
[2018-07-11 19:05] LABS: Bacteria,Urine 1+ /HPF (Negative); Bilirubin,Urine NEG (Negative); Blood,Urine LG (Negative); Color,Urine Yellow (Yellow); Mucus,Urine FEW /HPF; Urobilinogen,Urine < 2.0 mg/dL (<2.0)
[2018-07-11] MEDS: PERCOCET 5/325 PO PRN (20:17)
[2018-07-11] MEDS ORDERED: FLEET MINERAL OIL PR ONE (22:00)
[2018-07-12] MEDS: ZOFRAN IV PRN (02:29)
[2018-07-12] MEDS: TORADOL IV PRN (02:38)
[2018-07-12] MEDS: LACTATED RINGERS 1,000 ML IV SCH (02:51)
--- NOTE | 2018-07-12 03:13 | Event Note ---
Date: 07/12/18 On-call MD received report from RN that patient now with abdominal distention and and absent bowel sounds, as well as episode of coffee ground emesis. Suspect ileus vs bowel obstruction. Pt now NPO. Abdominal x-ray immediately. NG decompression. Restart IV fluids. Hold NSAIDs secondary to coffee ground emesis and add IV Pepcid to medication regimen. Continue to monitor clinically.
[2018-07-12] MEDS: D5/0.45NS 1,000 ML IV SCH ×3 (04:06→22:05)
[2018-07-12] MEDS: PEPCID IV SCH ×2 (04:07→14:48)
[2018-07-12] MEDS: MORPHINE IV PRN ×5 (04:11→20:04)
--- NOTE | 2018-07-12 04:47 | XRay Report ---
FINAL REPORT PROCEDURE: XR ABDOMEN 1V AP TECHNIQUE: AP supine portable radiograph of the abdomen was obtained at 07/12/2018 03:26 (EST) . HISTORY: abd. distention and vomiting COMPARISON: No prior studies are available for comparison. FINDINGS: Bowel gas pattern: There is a large amount of stool in the colon. There is no obstruction or fecal impaction. There is no bowel wall thickening.. Masses or calcifications: None. Bony structures: Normal. Other: There is no free intraperitoneal air.. IMPRESSION: There is a large amount of stool in the colon. There is no obstruction or fecal impaction. There is no bowel wall thickening.. There is no free intraperitoneal air..
--- NOTE | 2018-07-12 05:42 | XRay Report ---
FINAL REPORT PROCEDURE: XR ABDOMEN 1V AP TECHNIQUE: AP supine portable radiograph of the abdomen was obtained at 07/12/2018 05:04 (EST) . HISTORY: NG tube placement verification COMPARISON: No prior studies are available for comparison. FINDINGS: Bowel gas pattern: Nonobstructive. Masses or calcifications: None. Bony structures: Normal. Other: The NG tube is in the stomach.. IMPRESSION: No acute abnormality. NG tube is in the stomach.
[2018-07-12 07:15] LABS: Hematocrit 31.1 % (30.3-42.9); Hemoglobin 9.4 gm/dl (10.1-14.3); Mean Corpuscular HGB Conc 30 % (30-34); Mean Corpuscular Volume 73 fl (79-97); Platelet Count 359 K/mm3 (140-440); Red Blood Count 4.29 M/mm3 (3.65-5.03)
[2018-07-12 07:18] LABS: Mean Corpuscular Hemoglobin 22 pg (28-32)
[2018-07-12 07:24] LABS: Calcium 8.6 mg/dL (8.4-10.2)
[2018-07-12 08:29] LABS: Anisocytosis 3+; Band Neutrophils # (Manual) 0.4 K/mm3; Basophils % (Manual) 0 % (0.0-1.8); Eosinophils % (Manual) 0 % (0.0-4.3); Hypochromasia 2+; Ovalocytes Few; Total Cells Counted 100
[2018-07-12 08:30] LABS: Large Platelets Few; Tear Drop Cells Few
--- NOTE | 2018-07-12 09:56 | Progress Note ---
Assessment and Plan A: s/p robotic hysterectomy on 07/08/18 Renal failure Ileus vs SBO Abdominal Pain Constipation Lower Extremity Edema Vulvar Edema Cystitis P: Discontinue oral intake Maintain NG tube IVF Replete electrolytes STAT repeat creatinine Hospitalist consult Closely monitor clinical status Subjective - Subjective Date of service: 07/12/18 Principal diagnosis: s/p robotic hysterectomy, constipation, ileus vs SBO Interval history: Overnight, pt had loss of bowel sounds, increasing abdominal distention, and emesis with coffee grounds. She now reports a h/o GERD. The pt was made NPO, NG tube was placed and CBC, BMP were ordered. Minimal urine output overnight so she was straight catheterized this morning with over 1000 mL of blood tinged urine. Repeat creatinine has more than doubled as well. Minimal flatus this morning. Patient reports: flatus (minimal ), nauseated, no voiding normally, no bowel movement, no ambulating normally Objective - Vital Signs Latest vital signs: Vital Signs Temp Pulse Resp BP BP Pulse Ox 07/12/18 07:25 99.3 F 106 H 20 107/71 97 07/12/18 03:21 98.9 F 105 H 20 105/72 98 07/12/18 02:38 26 H 07/11/18 23:38 98.4 F 94 H 18 103/69 98 07/11/18 20:12 99 F 109 H 16 121/73 99 07/11/18 17:25 98.6 F 72 20 115/84 100 07/11/18 12:24 98.4 F 88 20 114/81 98 Intake and Output 07/11/18 07/12/18 07/12/18 22:59 06:59 14:59 Intake Total 463.75 1012.917 Output Total 63 150 1000 Balance 400.75 862.917 -1000 Intake: IV 343.75 822.917 Lactated Ringers 1,000 ml 343.75 822.917 @ 125 mls/hr IV DIRECT BINDU Rx#:[id number] Oral 120 Intake, Free Water 190 Output: Urine 63 1000 Indwelling Catheter 1000 Void 63 Emesis 150 Other: Total, Intake Amount 120 Total, Output Amount 60 150 1000 # Voids Void 1 # Bowel Movements 1 Weight 58.967 kg - Exam Breasts: Present: deferred Cardiovascular: Present: Regular rate Lungs: Present: Clear to auscultation Abdomen: Present: soft, distention (mild ), tenderness, abnormal bowel sounds ( near absent ), other (flanks warm to touch ) Vulva: both: normal (vulvar edema ) Extremities: Present: edema Incision: Present: intact - Labs Labs: Abnormal lab results 07/11/18 07/12/18 07/12/18 Range/Units 18:00 06:43 06:43 WBC 13.0 H (4.5-11.0) K/mm3 Hgb 9.4 L (10.1-14.3) gm/dl MCV 73 L (79-97) fl MCH 22 L (28-32) pg RDW 32.0 H (13.2-15.2) % Seg Neuts % (Manual) 87.0 H (40.0-70.0) % Lymphocytes % (Manual) 6.0 L (13.4-35.0) % Seg Neutrophils # Man 11.3 H (1.8-7.7) K/mm3 Lymphocytes # (Manual) 0.8 L (1.2-5.4) K/mm3 Sodium 128 L D (137-145) mmol/L Chloride 95.1 L (98-107) mmol/L Carbon Dioxide 17 L (22-30) mmol/L BUN 26 H (7-17) mg/dL Creatinine 3.6 H D (0.7-1.2) mg/dL Glucose 125 H (65-100) mg/dL Urine WBC (Auto) 15.0 H (0.0-6.0) /HPF U Epithel Cells (Auto) 45.0 H (0-13.0) /HPF
[2018-07-12] MEDS: ROCEPHIN/NS 1 GM/50 ML 1 GM/50 ML BAG IV SCH (10:20)
[2018-07-12] MEDS: DULCOLAX PR SCH ×2 (14:08→18:14)
[2018-07-12] MEDS: CLEOCIN 900 MG/50 mL 900 MG/50 ML BAG IV SCH ×2 (14:41→22:04)
--- NOTE | 2018-07-12 17:56 | Consultation ---
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 Consult placed br Dr. Ellsworth for evaluation of development for Acute Renal Failure. Pt seen and evaluated. Pt resting in bed, No reported nursing events. Pt denies fever, chills, CP, Palpitations, or shortness of breath. Nurse reports to immediate return of 2Liters of urine s/p placement of aguirre catheter. Past History Past Medical History: anemia Past Surgical History: hysterectomy, Other Social history: . denies: smoking, alcohol abuse, prescription drug abuse Family history: no significant family history (reviewed) Medications and Allergies Allergies Allergy/AdvReac Type Severity Reaction Status Date / Time No Known Allergies Allergy Unverified 07/06/18 10:34 Home Medications Medication Instructions Recorded Confirmed Last Taken Type Docusate Sodium [Colace] 100 mg PO BID PRN #60 capsule 07/09/18 Unknown Rx Ferrous Sulfate [Feosol 325 MG tab] 325 mg PO BID #60 tablet 07/09/18 Unknown Rx Ibuprofen [Motrin] 800 mg PO Q8HR PRN #60 tablet 07/09/18 Unknown Rx Oxycodone HCl/Acetaminophen 1 each PO Q6HR PRN #45 tablet 07/09/18 Unknown Rx [Percocet 7.5/325 mg] Active Meds: Active Medications Bisacodyl (Dulcolax) 10 mg WA QDAY [facility] Last Admin: 07/12/18 14:08 Dose: Not Given Famotidine (Pepcid) 20 mg IV QDAY [facility] Last Admin: 07/12/18 14:48 Dose: 20 mg Lactated Ringer's (Lactated Ringers) 1,000 mls @ 125 mls/hr IV DIRECT [facility] Last Admin: 07/12/18 02:51 Dose: 125 mls/hr Dextrose/Sodium Chloride (D5/0.45ns) 1,000 mls @ 125 mls/hr IV DIRECT [facility] Last Admin: 07/12/18 14:07 Dose: 125 mls/hr Ceftriaxone Sodium (Rocephin/Ns 1 Gm/50 Ml) 1 gm in 50 mls @ 100 mls/hr IV Q24HR [facility]; Protocol Stop: 07/13/18 10:29 Last Admin: 07/12/18 10:20 Dose: 100 mls/hr Clindamycin HCl (Cleocin 900 Mg/50 Ml) 900 mg in 50 mls @ 100 mls/hr IV Q8HR [facility]; Protocol Last Admin: 07/12/18 14:41 Dose: 100 mls/hr Morphine Sulfate (Morphine) 2 mg IV Q4H PRN PRN Reason: Pain, Moderate (4-6) Last Admin: 07/12/18 12:05 Dose: 2 mg Naloxone HCl (Narcan 0.4 Mg/1 Ml) 0.1 mg IV Q2MIN PRN PRN Reason: Res Rate </= 8 or 02 SAT < 92% Ondansetron HCl (Zofran) 4 mg IV Q8H PRN PRN Reason: Nausea And Vomiting Last Admin: 07/12/18 02:29 Dose: 4 mg Oxycodone/Acetaminophen (Percocet 5/325) 2 tab PO Q4H PRN PRN Reason: Pain, Moderate (4-6) Last Admin: 07/11/18 20:17 Dose: 2 tab Review of Systems Constitutional: no weight loss, no weight gain, no fever, no chills Ears, nose, mouth and throat: no ear pain, no ear discharge, no tinnitis, no decreased hearing, no nose pain Breasts: no change in shape, no swelling, no mass Cardiovascular: no chest pain, no palpitations, no rapid/irregular heart beat, no edema, no syncope Respiratory: no cough, no cough with sputum, no excessive sputum, no hemoptysis Gastrointestinal: nausea, no vomiting, no diarrhea Genitourinary Female: pelvic pain, no flank pain Rectal: no pain, no incontinence, no bleeding Musculoskeletal: no neck stiffness, no neck pain, no shooting arm pain, no arm numbness/tingling, no low back pain, no shooting leg pain Integumentary: no rash, no pruritis, no redness, no sores, no wounds Neurological: no transient paralysis, no paralysis, no weakness, no parathesias , no tingling, no seizures Psychiatric: no anxiety, no memory loss, no change in sleep habits, no sleep disturbances, no insomnia, no hypersomnia, no change in appetite Endocrine: no cold intolerance, no heat intolerance, no polyphagia, no excessive thirst, no polydipsia, no polyuria Hematologic/Lymphatic: no easy bruising, no easy bleeding, no lymphadenopathy, no lymphedema Allergic/Immunologic: no urticaria, no allergic rhinitis, no wheezing, no persistent infections, no anaphylaxis, no angioedema Exam - Constitutional Vitals: Temp Pulse Resp BP Pulse Ox 100.3 F H 107 H 20 102/66 99 07/12/18 15:33 07/12/18 15:33 07/12/18 15:33 07/12/18 15:33 07/12/18 15:33 General appearance: Present: mild distress - EENT Eyes: Present: PERRL ENT: hearing intact, clear oral mucosa - Neck Neck: Present: supple, normal ROM - Respiratory Respiratory effort: normal Respiratory: bilateral: CTA - Cardiovascular Heart Sounds: Present: S1 & S2. Absent: rub, click - Extremities Extremities: pulses symmetrical, No edema Peripheral Pulses: within normal limits - Abdominal General gastrointestinal: Present: soft, non-tender, non-distended, normal bowel sounds Female genitourinary: Present: normal - Integumentary Integumentary: Present: clear, warm, dry - Musculoskeletal Musculoskeletal: gait normal, strength equal bilaterally - Psychiatric Psychiatric: appropriate mood/affect, intact judgment & insight - Neurologic Neurologic: CNII-XII intact, moves all extremities Results - Labs CBC & Chem 7: 07/12/18 06:43 07/12/18 12:02 Labs: Abnormal lab results 07/11/18 07/12/18 07/12/18 Range/Units 18:00 06:43 06:43 WBC 13.0 H (4.5-11.0) K/mm3 Hgb 9.4 L (10.1-14.3) gm/dl MCV 73 L (79-97) fl MCH 22 L (28-32) pg RDW 32.0 H (13.2-15.2) % Seg Neuts % (Manual) 87.0 H (40.0-70.0) % Lymphocytes % (Manual) 6.0 L (13.4-35.0) % Seg Neutrophils # Man 11.3 H (1.8-7.7) K/mm3 Lymphocytes # (Manual) 0.8 L (1.2-5.4) K/mm3 Sodium 128 L D (137-145) mmol/L Chloride 95.1 L (98-107) mmol/L Carbon Dioxide 17 L (22-30) mmol/L BUN 26 H (7-17) mg/dL Creatinine 3.6 H D (0.7-1.2) mg/dL Glucose 125 H (65-100) mg/dL Urine WBC (Auto) 15.0 H (0.0-6.0) /HPF U Epithel Cells (Auto) 45.0 H (0-13.0) /HPF 07/12/18 Range/Units 12:02 WBC (4.5-11.0) K/mm3 Hgb (10.1-14.3) gm/dl MCV (79-97) fl MCH (28-32) pg RDW (13.2-15.2) % Seg Neuts % (Manual) (40.0-70.0) % Lymphocytes % (Manual) (13.4-35.0) % Seg Neutrophils # Man (1.8-7.7) K/mm3 Lymphocytes # (Manual) (1.2-5.4) K/mm3 Sodium (137-145) mmol/L Chloride (98-107) mmol/L Carbon Dioxide (22-30) mmol/L BUN (7-17) mg/dL Creatinine 2.6 H (0.7-1.2) mg/dL Glucose (65-100) mg/dL Urine WBC (Auto) (0.0-6.0) /HPF U Epithel Cells (Auto) (0-13.0) /HPF Assessment and Plan - Patient Problems (1) ARF (acute renal failure) with tubular necrosis Current Visit: Yes Status: Acute (2) Sepsis Current Visit: Yes Status: Acute Qualifiers: Sepsis type: sepsis due to unspecified organism Qualified Code(s): A41.9 - Sepsis, unspecified organism Plan to address problem: IV antibiotic therapy, monitor uop q shift, IVF resuscitation, blood cultures, supportive care, CBC, CMP in am. (3) Acidosis Current Visit: Yes Status: Acute Plan to address problem: IVF resuscitation therapy, serial lactic acid level (4) Constipation Current Visit: Yes Status: Acute Qualifiers: Constipation type: drug induced constipation Qualified Code(s): K59.03 - Drug induced constipation Plan to address problem: bowel regimen, fleet enema daily until bowel movement. (5) DVT prophylaxis Current Visit: Yes Status: Acute Plan to address problem: SCD to ble while in bed.
[2018-07-12] MEDS ORDERED: NACL 0.9% 1000 ML IV SCH (19:43)
[2018-07-12] MEDS ORDERED: FLEET PR ONE (20:00)
[2018-07-12] MEDS ORDERED: XYLOCAINE TOPICAL 2% 30ML TP ONE (21:18)
[2018-07-13] MEDS ORDERED: FLEET PR ONE ×2 (01:00→13:40)
[2018-07-13] MEDS: MORPHINE IV PRN ×4 (02:14→20:17)
[2018-07-13] MEDS: ZOFRAN IV PRN (02:22)
[2018-07-13] MEDS: D5/0.45NS 1,000 ML IV SCH ×2 (05:20→15:14)
[2018-07-13] MEDS: CLEOCIN 900 MG/50 mL 900 MG/50 ML BAG IV SCH ×3 (06:19→21:23)
[2018-07-13 06:21] LABS: BUN/Creatinine Ratio 8; Blood Urea Nitrogen 3 mg/dL (7-17); Calcium 8.1 mg/dL (8.4-10.2); Hemolysis Index 3
--- NOTE | 2018-07-13 09:03 | Progress Note ---
Assessment and Plan - Patient Problems (1) Ileus Current Visit: Yes Status: Acute Plan to address problem: continue NGT until output decreases will replace rocephin with unasyn bun/creat has normalized improve pain mgmt (2) ARF (acute renal failure) with tubular necrosis Current Visit: Yes Status: Acute (3) Postoperative abdominal pain Current Visit: Yes Status: Acute Subjective - Subjective Date of service: 07/13/18 Principal diagnosis: s/p robotic hysterectomy, constipation, ileus vs SBO Interval history: Patient reports having bowel movement this am. Reports passage of flatus. Still experiencing pain. Urine output increased considerably. patient feels hungry. +output from NGT (150ml/12 hrs). Patient reports: flatus, bowel movement, no appetite normal, no pain well controlled Objective - Vital Signs Latest vital signs: Vital Signs Temp Pulse Resp BP BP Pulse Ox 07/13/18 08:06 99.5 F 104 H 18 99 07/13/18 04:50 99.6 F 99 H 18 107/63 97 07/13/18 00:40 99.4 F 104 H 18 101/65 99 07/12/18 20:22 100.4 F H 111 H 18 107/66 98 07/12/18 18:02 99.8 F H 07/12/18 15:33 100.3 F H 107 H 20 102/66 99 07/12/18 11:46 99.8 F H 106 H 20 105/69 99 Intake and Output 07/12/18 07/13/18 07/13/18 22:59 06:59 14:59 Intake Total 904.167 906.25 Output Total 1700 1700 Balance -795.833 -793.75 Intake: IV 904.167 906.25 CLEOCIN 900 MG/50 mL 900 100 mg In 50 ml @ 100 mls/hr IV Q8HR [facility] Rx#:[id number] D5/0.45NS 1,000 ml @ 125 804.167 906.25 mls/hr IV DIRECT [facility] Rx#:[id number] Output: Gastric Drainage 200 150 Urine 1500 1550 Indwelling Catheter 1500 1550 Other: Total, Output Amount 700 150 Voiding Method Indwelling Catheter # Bowel Movements 1 - Labs Labs: Abnormal lab results 07/12/18 07/13/18 Range/Units 12:02 05:36 Sodium 135 L D (137-145) mmol/L Chloride 97.6 L (98-107) mmol/L BUN 3 L (7-17) mg/dL Creatinine 2.6 H 0.4 L D (0.7-1.2) mg/dL Glucose 132 H (65-100) mg/dL Calcium 8.1 L (8.4-10.2) mg/dL
[2018-07-13] MEDS ORDERED: CHLORASEPTIC MM PRN (09:27)
[2018-07-13] MEDS: PEPCID IV SCH (09:38)
[2018-07-13] MEDS: ROCEPHIN/NS 1 GM/50 ML 1 GM/50 ML BAG IV SCH (09:38)
[2018-07-13 11:59] LABS: Hematocrit 27.7 % (30.3-42.9); Hemoglobin 8.5 gm/dl (10.1-14.3); Mean Corpuscular HGB Conc 31 % (30-34); Mean Corpuscular Volume 73 fl (79-97); Platelet Count 397 K/mm3 (140-440); Red Blood Count 3.82 M/mm3 (3.65-5.03)
--- NOTE | 2018-07-13 12:09 | Progress Note ---
Subjective Date of service: 07/13/18 Principal diagnosis: s/p robotic hysterectomy, constipation, ileus vs SBO Objective - Constitutional Vitals: Vital Signs - 12hr 07/13/18 07/13/18 07/13/18 00:40 04:50 08:06 Temperature 99.4 F 99.6 F 99.5 F Pulse Rate 104 H 99 H 104 H Respiratory 18 18 18 Rate Blood Pressure 101/65 107/63 [Right] O2 Sat by Pulse 99 97 99 Oximetry General appearance: Present: no acute distress, well-nourished - EENT Eyes: PERRL, EOM intact ENT: hearing intact, clear oral mucosa Ears: bilateral: normal - Neck Neck: supple, normal ROM - Respiratory Respiratory effort: normal Respiratory: bilateral: CTA - Breasts Breasts: normal - Cardiovascular Rhythm: regular Heart Sounds: Present: S1 & S2. Absent: gallop, rub Extremities: pulses intact, No edema, normal color, Full ROM - Gastrointestinal General gastrointestinal: Present: soft, non-tender, non-distended, normal bowel sounds - Genitourinary Female genitourinary: normal - Integumentary Integumentary: clear, warm, dry - Musculoskeletal Musculoskeletal: 1, strength equal bilaterally - Neurologic Neurologic: moves all extremities - Psychiatric Psychiatric: memory intact, appropriate mood/affect, intact judgment & insight - Labs CBC & Chem 7: 07/12/18 06:43 07/13/18 05:36 Labs: Abnormal lab results 07/12/18 07/13/18 Range/Units 12:02 05:36 Sodium 135 L D (137-145) mmol/L Chloride 97.6 L (98-107) mmol/L BUN 3 L (7-17) mg/dL Creatinine 2.6 H 0.4 L D (0.7-1.2) mg/dL Glucose 132 H (65-100) mg/dL Calcium 8.1 L (8.4-10.2) mg/dL
[2018-07-13 12:10] LABS: Mean Corpuscular Hemoglobin 22 pg (28-32); Red Cell Distribution Width 32.2 % (13.2-15.2)
--- NOTE | 2018-07-13 13:37 | Progress Note ---
Assessment and Plan - Patient Problems (1) Ileus Current Visit: Yes Status: Acute Plan to address problem: demonstrating clinical improvement continue current management (2) ARF (acute renal failure) with tubular necrosis Current Visit: Yes Status: Acute (3) Postoperative abdominal pain Current Visit: Yes Status: Acute Subjective - Subjective Date of service: 07/13/18 Principal diagnosis: s/p robotic hysterectomy, constipation, ileus vs SBO Interval history: Monitoring NGT output closely. She denies feeling nauseated. Having some soreness of the throat secondary to the tubing. Labial swelling is improved. Will leave aguirre in place. Patient will attempt to ambulate today. Improvement in urine output. Renal status normalized. Repeat fleets enema this afternoon. Patient reports: flatus, bowel movement Objective - Vital Signs Latest vital signs: Vital Signs Temp Pulse Resp BP BP Pulse Ox 07/13/18 08:06 99.5 F 104 H 18 99 07/13/18 04:50 99.6 F 99 H 18 107/63 97 07/13/18 00:40 99.4 F 104 H 18 101/65 99 07/12/18 20:22 100.4 F H 111 H 18 107/66 98 07/12/18 18:02 99.8 F H 07/12/18 15:33 100.3 F H 107 H 20 102/66 99 Intake and Output 07/12/18 07/13/18 07/13/18 22:59 06:59 14:59 Intake Total 904.167 906.25 Output Total 1700 1700 Balance -795.833 -793.75 Intake: IV 904.167 906.25 CLEOCIN 900 MG/50 mL 900 100 mg In 50 ml @ 100 mls/hr IV Q8HR [facility] Rx#:[id number] D5/0.45NS 1,000 ml @ 125 804.167 906.25 mls/hr IV DIRECT [facility] Rx#:[id number] Output: Gastric Drainage 200 150 Urine 1500 1550 Indwelling Catheter 1500 1550 Other: Total, Output Amount 700 150 Voiding Method Indwelling Catheter Indwelling Catheter # Bowel Movements 1 - Exam Abdomen: Present: soft. Absent: distention - Labs Labs: Abnormal lab results 07/13/18 07/13/18 Range/Units 05:36 09:29 WBC 11.1 H (4.5-11.0) K/mm3 Hgb 8.5 L (10.1-14.3) gm/dl Hct 27.7 L (30.3-42.9) % MCV 73 L (79-97) fl MCH 22 L (28-32) pg RDW 32.2 H (13.2-15.2) % Sodium 135 L D (137-145) mmol/L Chloride 97.6 L (98-107) mmol/L BUN 3 L (7-17) mg/dL Creatinine 0.4 L D (0.7-1.2) mg/dL Glucose 132 H (65-100) mg/dL Calcium 8.1 L (8.4-10.2) mg/dL
[2018-07-13] MEDS: UNASYN/NS 3 GM/100 ML 3 GM/100 ML BAG IV SCH ×2 (14:00→20:16)
--- NOTE | 2018-07-13 15:51 | Progress Note ---
Assessment and Plan - Patient Problems (1) ARF (acute renal failure) with tubular necrosis Current Visit: Yes Status: Acute Plan to address problem: Resolved Bun/Cr 26/3.6 yesterda -today 3/0.4 Maybe someone elses labs Repeat labs for AM (2) Ileus, postoperative Current Visit: Yes Status: Acute Plan to address problem: improving (3) DVT prophylaxis Current Visit: Yes Status: Acute Plan to address problem: on SCD,s Subjective Date of service: 07/13/18 Principal diagnosis: s/p robotic hysterectomy, constipation, ileus vs SBO,ELROY Interval history: ELROY -improved Objective - Constitutional Vitals: Vital Signs - 12hr 07/13/18 07/13/18 04:50 08:06 Temperature 99.6 F 99.5 F Pulse Rate 99 H 104 H Respiratory 18 18 Rate Blood Pressure 107/63 [Right] O2 Sat by Pulse 97 99 Oximetry General appearance: Present: no acute distress, well-nourished - EENT Eyes: PERRL, EOM intact ENT: hearing intact, clear oral mucosa Ears: bilateral: normal - Neck Neck: supple, normal ROM - Respiratory Respiratory effort: normal Respiratory: bilateral: CTA - Breasts Breasts: normal - Cardiovascular Rhythm: regular Heart Sounds: Present: S1 & S2. Absent: gallop, rub Extremities: pulses intact, No edema, normal color, Full ROM - Gastrointestinal General gastrointestinal: Present: soft, non-tender, non-distended, normal bowel sounds - Genitourinary Female genitourinary: normal - Integumentary Integumentary: clear, warm, dry - Musculoskeletal Musculoskeletal: 1, strength equal bilaterally - Neurologic Neurologic: moves all extremities - Psychiatric Psychiatric: memory intact, appropriate mood/affect, intact judgment & insight - Labs CBC & Chem 7: 07/13/18 09:29 07/13/18 05:36 Labs: Abnormal lab results 07/13/18 07/13/18 Range/Units 05:36 09:29 WBC 11.1 H (4.5-11.0) K/mm3 Hgb 8.5 L (10.1-14.3) gm/dl Hct 27.7 L (30.3-42.9) % MCV 73 L (79-97) fl MCH 22 L (28-32) pg RDW 32.2 H (13.2-15.2) % Sodium 135 L D (137-145) mmol/L Chloride 97.6 L (98-107) mmol/L BUN 3 L (7-17) mg/dL Creatinine 0.4 L D (0.7-1.2) mg/dL Glucose 132 H (65-100) mg/dL Calcium 8.1 L (8.4-10.2) mg/dL
[2018-07-14] MEDS: D5/0.45NS 1,000 ML IV SCH (00:27)
[2018-07-14] MEDS: UNASYN/NS 3 GM/100 ML 3 GM/100 ML BAG IV SCH ×2 (02:08→19:33)
[2018-07-14 05:27] LABS: Hematocrit 23.4 % (30.3-42.9); Hemoglobin 7.4 gm/dl (10.1-14.3); Mean Corpuscular HGB Conc 32 % (30-34); Mean Corpuscular Hemoglobin 23 pg (28-32); Mean Corpuscular Volume 71 fl (79-97); Platelet Count 381 K/mm3 (140-440); Red Blood Count 3.29 M/mm3 (3.65-5.03)
[2018-07-14 05:48] LABS: BUN/Creatinine Ratio 7; Blood Urea Nitrogen 2 mg/dL (7-17); Hemolysis Index 0
[2018-07-14] MEDS: CLEOCIN 900 MG/50 mL 900 MG/50 ML BAG IV SCH ×3 (05:57→21:53)
[2018-07-14] MEDS: MORPHINE IV PRN ×2 (06:02→14:03)
--- NOTE | 2018-07-14 08:51 | Progress Note ---
Assessment and Plan - Patient Problems (1) Ileus Current Visit: Yes Status: Acute Plan to address problem: resolving ileus will remove NGT and aguirre advance diet as tolerated (2) ARF (acute renal failure) with tubular necrosis Current Visit: Yes Status: Acute (3) Postoperative abdominal pain Current Visit: Yes Status: Acute Subjective - Subjective Date of service: 07/14/18 Principal diagnosis: s/p robotic hysterectomy, constipation, ileus vs SBO,ELROY Interval history: Patient reports feeling better. Decreased NGT output. Continues to have adequate urine output. Pain is better controlled. Patient reports: flatus, bowel movement Objective - Vital Signs Latest vital signs: Vital Signs Temp Pulse Resp BP BP Pulse Ox 07/14/18 08:22 98.5 F 76 20 98/67 99 07/14/18 04:30 99.1 F 76 18 105/59 99 07/14/18 00:18 98.6 F 85 18 97/69 97 07/13/18 20:15 99.0 F 94 H 18 105/70 99 07/13/18 17:10 99.3 F 90 18 103/67 98 Intake and Output 07/13/18 07/14/18 07/14/18 22:59 06:59 14:59 Intake Total 150 1000 Output Total 1490 600 Balance -1340 400 Intake: IV 150 1000 CLEOCIN 900 MG/50 mL 900 50 mg In 50 ml @ 100 mls/hr IV Q8HR [facility] Rx#:[id number] D5/0.45NS 1,000 ml @ 125 1000 mls/hr IV DIRECT [facility] Rx#:[id number] UNASYN/NS 3 GM/100 ML 3 100 gm In 100 ml @ 200 mls/hr IV Q6HR [facility] Rx#: [id number] Output: Gastric Drainage 50 Urine 1440 600 Indwelling Catheter 1440 600 Other: Total, Output Amount 600 600 Voiding Method Indwelling Catheter # Bowel Movements 1 - Exam Abdomen: Present: soft - Labs Labs: Abnormal lab results 07/13/18 07/14/18 07/14/18 Range/Units 09:29 04:37 04:37 WBC 11.1 H (4.5-11.0) K/mm3 RBC 3.29 L (3.65-5.03) M/mm3 Hgb 8.5 L 7.4 L (10.1-14.3) gm/dl Hct 27.7 L 23.4 L (30.3-42.9) % MCV 73 L 71 L (79-97) fl MCH 22 L 23 L (28-32) pg RDW 32.2 H 32.0 H (13.2-15.2) % Potassium 3.3 L (3.6-5.0) mmol/L BUN 2 L (7-17) mg/dL Creatinine 0.3 L (0.7-1.2) mg/dL Glucose 109 H (65-100) mg/dL Calcium 8.0 L (8.4-10.2) mg/dL
[2018-07-14] MEDS: PEPCID IV SCH (10:47)
[2018-07-14] MEDS: MILK OF MAGNESIA PO PRN ×4 (10:47→22:08)
--- NOTE | 2018-07-14 15:54 | Progress Note ---
Assessment and Plan Assessment and plan: --Acute kidney injury; probably secondary to ATN Resolved, avoid nephrotoxins, continue gentle hydration --Postop ileus; mild improvement Patient tolerating clear liquids, closely monitor --Hypokalemia; replace per protocol and monitor levels --Hyponatremia; significantly improved, continue IV fluids --Leukocytosis; resolved --Anemia; closely monitor H&H and transfuse as needed --DVT prophylaxis; SCDs Closely monitor the patient and adjust the management as needed Plan of care reviewed with the patient and her nurse History Interval history: Patient seen and examined, medical records reviewed Patient feels slightly better Tolerating clear liquid diet Vague abdominal pain Vital signs noted Hospitalist Physical - Constitutional Vitals: Temp Pulse Resp BP Pulse Ox 98.2 F 78 18 108/68 98 07/14/18 12:05 07/14/18 12:05 07/14/18 12:05 07/14/18 12:05 07/14/18 12:05 General appearance: Present: no acute distress, well-nourished - EENT Eyes: Present: PERRL, EOM intact - Neck Neck: Present: supple, normal ROM - Respiratory Respiratory effort: normal Respiratory: bilateral: diminished, negative: rales, rhonchi, wheezing - Cardiovascular Rhythm: regular Heart Sounds: Present: S1 & S2 - Extremities Extremities: no ischemia, No edema - Abdominal General gastrointestinal: soft, non-tender, distended (no guarding no rigidity) , hypoactive bowel sounds - Integumentary Integumentary: Present: clear, warm - Psychiatric Psychiatric: appropriate mood/affect, cooperative - Neurologic Neurologic: CNII-XII intact, moves all extremities Results - Labs CBC & Chem 7: 07/14/18 04:37 07/14/18 04:37 Labs: Laboratory Last Values WBC 8.0 K/mm3 (4.5-11.0) 07/14/18 04:37 RBC 3.29 M/mm3 (3.65-5.03) L 07/14/18 04:37 Hgb 7.4 gm/dl (10.1-14.3) L 07/14/18 04:37 Hct 23.4 % (30.3-42.9) L 07/14/18 04:37 MCV 71 fl (79-97) L 07/14/18 04:37 MCH 23 pg (28-32) L 07/14/18 04:37 MCHC 32 % (30-34) 07/14/18 04:37 RDW 32.0 % (13.2-15.2) H 07/14/18 04:37 Plt Count 381 K/mm3 (140-440) 07/14/18 04:37 Add Manual Diff Complete 07/12/18 06:43 Total Counted 100 07/12/18 06:43 Seg Neuts % (Manual) 87.0 % (40.0-70.0) H 07/12/18 06:43 Band Neutrophils % 3.0 % 07/12/18 06:43 Lymphocytes % (Manual) 6.0 % (13.4-35.0) L 07/12/18 06:43 Reactive Lymphs % (Man) 0 % 07/12/18 06:43 Monocytes % (Manual) 4.0 % (0.0-7.3) 07/12/18 06:43 Eosinophils % (Manual) 0 % (0.0-4.3) 07/12/18 06:43 Basophils % (Manual) 0 % (0.0-1.8) 07/12/18 06:43 Metamyelocytes % 0 % 07/12/18 06:43 Myelocytes % 0 % 07/12/18 06:43 Promyelocytes % 0 % 07/12/18 06:43 Blast Cells % 0 % 07/12/18 06:43 Nucleated RBC % Not Reportable 07/12/18 06:43 Seg Neutrophils # Man 11.3 K/mm3 (1.8-7.7) H 07/12/18 06:43 Band Neutrophils # 0.4 K/mm3 07/12/18 06:43 Lymphocytes # (Manual) 0.8 K/mm3 (1.2-5.4) L 07/12/18 06:43 Abs React Lymphs (Man) 0.0 K/mm3 07/12/18 06:43 Monocytes # (Manual) 0.5 K/mm3 (0.0-0.8) 07/12/18 06:43 Eosinophils # (Manual) 0.0 K/mm3 (0.0-0.4) 07/12/18 06:43 Basophils # (Manual) 0.0 K/mm3 (0.0-0.1) 07/12/18 06:43 Metamyelocytes # 0.0 K/mm3 07/12/18 06:43 Myelocytes # 0.0 K/mm3 07/12/18 06:43 Promyelocytes # 0.0 K/mm3 07/12/18 06:43 Blast Cells # 0.0 K/mm3 07/12/18 06:43 WBC Morphology Not Reportable 07/12/18 06:43 Hypersegmented Neuts Not Reportable 07/12/18 06:43 Hyposegmented Neuts Not Reportable 07/12/18 06:43 Hypogranular Neuts Not Reportable 07/12/18 06:43 Smudge Cells Not Reportable 07/12/18 06:43 Toxic Granulation Not Reportable 07/12/18 06:43 Toxic Vacuolation Not Reportable 07/12/18 06:43 Dohle Bodies Not Reportable 07/12/18 06:43 Pelger-Huet Anomaly Not Reportable 07/12/18 06:43 Brenna Rods Not Reportable 07/12/18 06:43 Platelet Estimate Appears normal 07/12/18 06:43 Clumped Platelets Not Reportable 07/12/18 06:43 Plt Clumps, EDTA Not Reportable 07/12/18 06:43 Large Platelets Few 07/12/18 06:43 Giant Platelets Not Reportable 07/12/18 06:43 Platelet Satelliting Not Reportable 07/12/18 06:43 Plt Morphology Comment Not Reportable 07/12/18 06:43 RBC Morphology Not Reportable 07/12/18 06:43 Dimorphic RBCs Not Reportable 07/12/18 06:43 Polychromasia Not Reportable 07/12/18 06:43 Hypochromasia 2+ 07/12/18 06:43 Poikilocytosis Not Reportable 07/12/18 06:43 Anisocytosis 3+ 07/12/18 06:43 Microcytosis Not Reportable 07/12/18 06:43 Macrocytosis Not Reportable 07/12/18 06:43 Spherocytes Not Reportable 07/12/18 06:43 Pappenheimer Bodies Not Reportable 07/12/18 06:43 Sickle Cells Not Reportable 07/12/18 06:43 Target Cells Not Reportable 07/12/18 06:43 Tear Drop Cells Few 07/12/18 06:43 Ovalocytes Few 07/12/18 06:43 Helmet Cells Not Reportable 07/12/18 06:43 Mathur-Delshire Bodies Not Reportable 07/12/18 06:43 Ceiba Rings Not Reportable 07/12/18 06:43 Hellen Cells Not Reportable 07/12/18 06:43 Bite Cells Not Reportable 07/12/18 06:43 Crenated Cell Not Reportable 07/12/18 06:43 Elliptocytes Not Reportable 07/12/18 06:43 Acanthocytes (Spur) Not Reportable 07/12/18 06:43 Rouleaux Not Reportable 07/12/18 06:43 Hemoglobin C Crystals Not Reportable 07/12/18 06:43 Schistocytes Not Reportable 07/12/18 06:43 Malaria parasites Not Reportable 07/12/18 06:43 Alberto Bodies Not Reportable 07/12/18 06:43 Hem Pathologist Commnt No 07/12/18 06:43 Sodium 140 mmol/L (137-145) 07/14/18 04:37 Potassium 3.3 mmol/L (3.6-5.0) L 07/14/18 04:37 Chloride 102.5 mmol/L (98-107) 07/14/18 04:37 Carbon Dioxide 27 mmol/L (22-30) 07/14/18 04:37 Anion Gap 14 mmol/L 07/14/18 04:37 BUN 2 mg/dL (7-17) L 07/14/18 04:37 Creatinine 0.3 mg/dL (0.7-1.2) L 07/14/18 04:37 Estimated GFR > 60 ml/min 07/14/18 04:37 BUN/Creatinine Ratio 7 % 07/14/18 04:37 Glucose 109 mg/dL (65-100) H 07/14/18 04:37 Lactic Acid 1.00 mmol/L (0.7-2.0) 07/13/18 05:36 Calcium 8.0 mg/dL (8.4-10.2) L 07/14/18 04:37 Total Bilirubin 0.20 mg/dL (0.1-1.2) 07/11/18 Unknown Direct Bilirubin < 0.2 mg/dL (0-0.2) 07/11/18 Unknown Indirect Bilirubin 0.0 mg/dL 07/11/18 Unknown AST 18 units/L (5-40) 07/11/18 Unknown ALT 9 units/L (7-56) 07/11/18 Unknown Alkaline Phosphatase 54 units/L (35-129) 07/11/18 Unknown NT-Pro-B Natriuret Pep 61.72 pg/mL (0-450) 07/11/18 Unknown Total Protein 6.9 g/dL (6.3-8.2) 07/11/18 Unknown Albumin 4.1 g/dL (3.9-5) 07/11/18 Unknown Albumin/Globulin Ratio 1.5 % 07/11/18 Unknown Lipase 13 units/L (13-60) 07/11/18 Unknown Urine Color Yellow (Yellow) 07/11/18 18:00 Urine Turbidity Cloudy (Clear) 07/11/18 18:00 Urine pH 5.0 (5.0-7.0) 07/11/18 18:00 Ur Specific [place] 1.011 (1.003-1.030) 07/11/18 18:00 Urine Protein 30 mg/dl mg/dL (Negative) 07/11/18 18:00 Urine Glucose (UA) Neg mg/dL (Negative) 07/11/18 18:00 Urine Ketones Neg mg/dL (Negative) 07/11/18 18:00 Urine Blood Lg (Negative) 07/11/18 18:00 Urine Nitrite Neg (Negative) 07/11/18 18:00 Urine Bilirubin Neg (Negative) 07/11/18 18:00 Urine Urobilinogen < 2.0 mg/dL (<2.0) 07/11/18 18:00 Ur Leukocyte Esterase Mod (Negative) 07/11/18 18:00 Urine WBC (Auto) 15.0 /HPF (0.0-6.0) H 07/11/18 18:00 Urine RBC (Auto) 63.0 /HPF (0.0-6.0) 07/11/18 18:00 U Epithel Cells (Auto) 45.0 /HPF (0-13.0) H 07/11/18 18:00 Urine Bacteria (Auto) 1+ /HPF (Negative) 07/11/18 18:00 Urine Mucus Few /HPF 07/11/18 18:00 Urine Yeast (Budding) Few /HPF 07/11/18 18:00
[2018-07-14] MEDS ORDERED: K-DUR PO ONE (16:30)
[2018-07-15] MEDS: PERCOCET 5/325 PO PRN ×2 (01:43→05:45)
[2018-07-15] MEDS: UNASYN/NS 3 GM/100 ML 3 GM/100 ML BAG IV SCH ×2 (01:50→08:27)
[2018-07-15] MEDS: MILK OF MAGNESIA PO PRN ×2 (02:25→05:45)
[2018-07-15] MEDS: D5/0.45NS 1,000 ML IV SCH (02:30)
[2018-07-15] MEDS: CLEOCIN 900 MG/50 mL 900 MG/50 ML BAG IV SCH (05:46)
[2018-07-15 07:28] LABS: Hematocrit 29.8 % (30.3-42.9); Hemoglobin 9.2 gm/dl (10.1-14.3); Mean Corpuscular HGB Conc 31 % (30-34); Mean Corpuscular Volume 72 fl (79-97); Platelet Count 637 K/mm3 (140-440); Red Blood Count 4.15 M/mm3 (3.65-5.03)
[2018-07-15 07:29] LABS: Mean Corpuscular Hemoglobin 22 pg (28-32); Red Cell Distribution Width 32.4 % (13.2-15.2)
[2018-07-15 07:36] LABS: BUN/Creatinine Ratio 8; Blood Urea Nitrogen 3 mg/dL (7-17); Calcium 8.6 mg/dL (8.4-10.2); Hemolysis Index 7
--- NOTE | 2018-07-15 08:48 | Progress Note ---
Assessment and Plan - Patient Problems (1) Ileus Current Visit: Yes Status: Acute Plan to address problem: resolved discharge home (2) ARF (acute renal failure) with tubular necrosis Current Visit: Yes Status: Acute (3) Postoperative abdominal pain Current Visit: Yes Status: Acute Subjective - Subjective Date of service: 07/15/18 Principal diagnosis: s/p robotic hysterectomy, constipation, ileus vs SBO,ELROY Interval history: Patient reports feeling much better. She had 2 bowel movements. She is voiding without complication. Pain is improved Patient reports: appetite normal, voiding normally, pain well controlled Objective - Vital Signs Latest vital signs: Vital Signs Temp Pulse Resp BP Pulse Ox 07/15/18 07:30 98.5 F 81 18 103/63 100 07/15/18 06:45 18 07/15/18 05:45 18 07/15/18 03:59 98.4 F 73 14 100/64 98 07/15/18 02:43 18 07/15/18 01:43 20 07/14/18 23:22 98.8 F 82 4 L 103/66 99 07/14/18 19:20 99.1 F 89 16 107/73 98 07/14/18 16:34 98.8 F 70 20 102/72 99 07/14/18 12:05 98.2 F 78 18 108/68 98 Intake and Output 07/14/18 07/15/18 07/15/18 22:59 06:59 14:59 Intake Total 170 200 Output Total 500 Balance -330 200 Intake: IV 50 200 CLEOCIN 900 MG/50 mL 900 50 mg In 50 ml @ 100 mls/hr IV Q8HR BINDU Rx#:[id number] UNASYN/NS 3 GM/100 ML 3 200 gm In 100 ml @ 200 mls/hr IV Q6HR BINDU Rx#: [id number] Oral 120 Output: Urine 500 Void 500 Other: Total, Intake Amount 120 Total, Output Amount 500 Voiding Method Toilet # Voids Indwelling Catheter 2 # Bowel Movements 1 - Exam Abdomen: Present: normal appearance, soft - Labs Labs: Abnormal lab results 07/15/18 07/15/18 Range/Units 06:46 06:46 Hgb 9.2 L (10.1-14.3) gm/dl Hct 29.8 L D (30.3-42.9) % MCV 72 L (79-97) fl MCH 22 L (28-32) pg RDW 32.4 H (13.2-15.2) % Plt Count 637 H (140-440) K/mm3 BUN 3 L (7-17) mg/dL Creatinine 0.4 L (0.7-1.2) mg/dL Glucose 102 H (65-100) mg/dL
--- NOTE | 2018-07-15 08:51 | Discharge Summary ---
Providers - Providers Date of Admission: 07/12/18 03:31 Date of discharge: 07/15/18 Attending physician: CARROLL BUTLER 07/12/18 13:18 Consult to Physician [CONS] Routine Comment: Consulting Provider: STEPHIE SEYMOUR Physician Instructions: Reason For Exam: Renal Insufficiency, Constipation, Urinary Retenti Primary care physician: MOLD PRESSER Hospitalization Reason for admission: other (abdominal pain) Discharge diagnosis: other (Ileus) Hospital course: Patient admitted for abdominal pain and nausea. She admits to not having a bowel movement in days. CT scan revealed no evidence of bowel perforation or obstruction. The patient was managed with NGT and NPO status. She had improvement in her symptoms. Condition at discharge: Good Disposition: DC-01 TO HOME OR SELFCARE - Discharge Diagnoses (1) Ileus Status: Acute (2) ARF (acute renal failure) with tubular necrosis Status: Acute (3) Postoperative abdominal pain Status: Acute Plan - Provider Discharge Summary Additional instructions: [] Smoking cessation referral if applicable(refer to patient education folder for contact #) [] Refer to [facility] Booklet Call your doctor immediately for: * Fever > 100.5 * Heavy vaginal bleeding ( >1 pad per hour) * Severe persistent headache * Shortness of breath * Reddened, hot, painful area to leg or breast * Drainage or odor from incision. * Keep incision clean and dry at all times and follow doctor's instructions regarding bathing/showering schedule followup with Dr Banegas in one week - Follow up plan
[2018-07-15] MEDS: DULCOLAX PR SCH (10:00)
[2018-07-15] MEDS: PEPCID IV SCH (10:00)
[2018-07-15 10:20] VITALS: BP 97/71
== END 2018-07-15 10:16 | disposition home or self-care (01) | DRG 871 ==
LOC: ED 22:34 → UNDOADMIN 07-11 04:01 → OB 07-11 04:01 → OBSVTOIN 07-12 03:31
PROVIDERS: ADMIT Obstetrics & Gynecology; ATTEND Internal Medicine
PROC: 0D9670Z Drainage of Stomach with Drainage Device, Via Natural or Artificial Opening (ICD-10-PCS; principal; 2018-07-12)
DX: A41.9 Sepsis, unspecified organism (principal); N17.0 Acute kidney failure with tubular necrosis; E87.1 Hypo-osmolality and hyponatremia; K56.7 Ileus, unspecified; E87.6 Hypokalemia; G89.18 Other acute postprocedural pain; K59.03 Drug induced constipation; R10.9 Unspecified abdominal pain; D64.9 Anemia, unspecified; N30.90 Cystitis, unspecified without hematuria; N90.89 Other specified noninflammatory disorders of vulva and perineum; K21.9 Gastro-esophageal reflux disease without esophagitis; Z90.722 Acquired absence of ovaries, bilateral; Z90.710 Acquired absence of both cervix and uterus; Z79.899 Other long term (current) drug therapy; Z72.89 Other problems related to lifestyle
CPT/HCPCS: 36415; 74018; 74177; 80048; 80074; 81001; 82140; 82565; 83690; 83880; 85007; 85025; 85027; 87086; 96374; 96375; 99285; G0378; J0295; J0696; J1170; J1885; J1940; J2270; J2405; J3010; J7030; J7120; Q9967

== ENCOUNTER 2019-05-20 08:59 | Outpatient (CLI) | payer MEDICAID ==
--- NOTE | 2019-05-20 10:58 | Mammography Report ---
BILATERAL DIGITAL SCREENING MAMMOGRAM WITH CAD INDICATION: Routine screening mammography. TECHNIQUE: Digital bilateral 2D mammography was obtained in the craniocaudal and mediolateral obliq ue projections. This examination was interpreted with the benefit of Computer-Aided Detection analysi s. COMPARISON: 10/07/2017 FINDINGS: Breast Density: The breasts are heterogeneously dense, which may obscure small masses. No mass, architectural distortion or suspicious calcifications. IMPRESSION:No mammographic evidence of malignancy. BI-RADS Category 1: Negative. No mammographic evidence of malignancy. Recommend routine screening m ammography in one year. A "normal" or negative report should not discourage follow up or biopsy of a clinically significant f inding. A written summary of these findings will be mailed to the patient. The patient will be entered into a mammography reporting system which will generate a reminder letter for the patient's next appointmen t at the appropriate interval. The [employer] recommends yearly mammograms starting at age 40 and continuing as l virgen as a woman is in good health. Breast MRI is recommended for women with an approximate 20-25% or greater lifetime risk of breast cancer, including women with a strong family history of breast or ova jama cancer or who have been treated for Hodgkin's disease. Signer Name: Harry Rodríguez MD Signed: 05/20/2019 10:53 AM Workstation Name: [id number]
== END 2019-05-20 09:00 | disposition home or self-care (01) ==
LOC: MAMMO 08:59
PROVIDERS: ATTEND Obstetrics & Gynecology
DX: Z12.31 Encounter for screening mammogram for malignant neoplasm of breast (principal)
CPT/HCPCS: 77067

== ENCOUNTER 2019-06-07 11:48 | Day surgery (SDC) | payer MEDICAID ==
--- NOTE | 2019-06-07 12:23 | Anesthesia Day of Surgery ---
Anesthesia Day of Surgery - Day of Surgery Patient Examined: Yes Patient H&P Reviewed: Yes Patient is NPO: Yes
--- NOTE | 2019-06-07 12:24 | Anesthesia Consultation ---
Anesthesia Consult and Med Hx Date of service: 06/07/19 - Airway Anesthetic Teeth Evaluation: Dentures (upper), Edentulous (Upper) ROM Head & Neck: Adequate Mental/Hyoid Distance: Adequate Mallampati Class: Class II Intubation Access Assessment: Good - Pre-Operative Health Status ASA Pre-Surgery Classification: ASA2 Proposed Anesthetic Plan: MAC - Pulmonary Hx Smoking: No Hx Asthma: No COPD: No Hx Pneumonia: No Hx Sleep Apnea: No - Cardiovascular System Hx Heart Attack/AMI: No - Central Nervous System Hx Psychiatric Problems: No - Endocrine Hx End Stage Renal Disease: No - Hematic Hx Anemia: Yes (S/P blood tx) Hx Sickle Cell Disease: No - Other Systems Hx Cancer: No
[2019-06-07] MEDS ORDERED: NACL 0.9% 1000 ML 1,000 ML IV SCH (12:55)
[2019-06-07] MEDS ORDERED: DIPRIVAN 10 MG/ML IV ONE ×2 (14:01)
[2019-06-07] MEDS ORDERED: WATER FOR IRRIG STERILE IR ONE (14:24)
[2019-06-07] MEDS ORDERED: WATER FOR IRRIG STERILE ONE (14:25)
[2019-06-07] MEDS ORDERED: XYLOCAINE MPF 2% ONE (14:30)
--- NOTE | 2019-06-07 14:37 | Operative Report ---
Operative Report Operative Report: Date of procedure: 06/07/2019 Procedure: Colonoscopy. Attending physician: Wesly Delgado MD Permit Technician: Wesly Delgado MD Indication: Patient is a 48-year-old female who presents for screening colonoscopy. A colonoscopy serves to evaluate patient for colorectal cancer screening. Consent: Informed consent was obtained after advising the patient and family regarding nature of this procedure, its indications, potential benefits as well as possible complications including but not limited to bleeding perforation and adverse reaction to medication, infection as well as other cardiopulmonary complications. An informed written and verbal consent was then obtained after due opportunity was provided for questions and answers. Monitoring: Patient was monitored continuously with pulse oximetry and electrocardiographic recordings as well as blood pressure recordings. Vital signs remained stable throughout this procedure with no untoward events. Preoperative assessment: Patient was assessed immediately prior to this procedure for capacity to tolerate monitored anesthesia care and moderate sedation as well as general anesthesia. Patient's ASA classification is 2, Mallampati class is 2, Hyomental distance is 3. Instrument: WinWe[employer]on video colonoscope Medications: Propofol given intravenously in divided doses. For details please refer to anesthesia records. Description of procedure: Patient was placed in the left lateral decubitus position after achieving sedation, a digital rectal examination was performed following which the colonoscope was introduced into the anal verge and advanced to the cecum which was identified by the cecal valve, the appendiceal orifice, as well as by the cecal strap and direct transillumination. The colonoscope was subsequently withdrawn with careful inspection of all mucosal surfaces. Patient tolerated this procedure well and was subsequently taken to the recovery room. The following findings were noted. Findings: Patient had few scattered diverticula involving the sigmoid and descending colon. On the retroflex view at the anal verge, patient had Grade II internal hemorrhoids. Impression: Mild diverticulosis. Internal hemorrhoids. Plan: High-fiber diet. Repeat colonoscopy in 10 years.
--- NOTE | 2019-06-07 14:39 | Discharge Summary ---
Short Stay Discharge Plan Activity: advance as tolerated Weight Bearing Status: Weight Bear as Tolerated Diet: regular Follow up with: JAMARCUS WALDEN MD [Primary Care Provider] - 7 Days
[2019-06-07 14:56] VITALS: BP 105/71
== END 2019-06-07 14:56 | disposition home or self-care (01) ==
LOC: GIO 11:48
PROVIDERS: ATTEND Internal Medicine Gastroenterology
DX: Z12.11 Encounter for screening for malignant neoplasm of colon (principal); K57.30 Diverticulosis of large intestine without perforation or abscess without bleeding; K64.8 Other hemorrhoids; D72.829 Elevated white blood cell count, unspecified; Z90.710 Acquired absence of both cervix and uterus; Z98.890 Other specified postprocedural states; Z86.2 Personal history of diseases of the blood and blood-forming organs and certain disorders involving the immune mechanism
CPT/HCPCS: 45378; J2704

== ENCOUNTER 2019-12-06 09:21 | Outpatient (CLI) | payer MEDICAID ==
--- NOTE | 2019-12-06 10:51 | Mammography Report ---
LEFT DIGITAL DIAGNOSTIC MAMMOGRAM WITH CAD 12/06/2019 LEFT LIMITED BREAST/AXILLARY ULTRASOUND INDICATION: A left axillary lump. TECHNIQUE: Digital left mammographic imaging was performed. Limited ultrasound was performed. This e xamination was interpreted with the benefit of Computer-Aided Detection (CAD) analysis. COMPARISON: 05/20/2019 screening mammogram. FINDINGS: Breast Density: The breasts are heterogeneously dense, which may obscure small masses. MAMMOGRAPHIC FINDINGS: A single axillary view of the left axilla was performed and demonstrates no ma ss or lymph node at a triangular shaped palpable marker. ULTRASOUND FINDINGS: Targeted ultrasound evaluation was performed of the area of interest. Ultraso und of the left axilla demonstrated 2 small lymph nodes with central fat and benign morphology measur ing 8 mm and 9 mm each. They correlate with the palpable lump. No abnormal lymph node and no mass. IMPRESSION: Benign lymph nodes of the left axilla and no suspicious finding. Follow up recommendation: Routine yearly BI-RADS Category 2: Benign. A "normal" or negative report should not discourage follow up or biopsy of a clinically significant f inding. A written summary of these findings will be mailed to the patient. The patient will be entered into a mammography reporting system which will generate a reminder letter for the patient's next appointmen t at the appropriate interval. According to the [employer], yearly mammograms are recommended starting at age 40 and continuing as long as a woman is in good health. Breast MRI is recommended for women with an marcus roximately 20-25% or greater lifetime risk of breast cancer, including women with a strong family his tory of breast or ovarian cancer and women who have been treated for Hodgkin's disease. Signer Name: Harry Rodríguez MD Signed: 12/06/2019 10:47 AM Workstation Name: [id number]
== END 2019-12-06 09:22 | disposition home or self-care (01) ==
LOC: SPVWC 09:21
PROVIDERS: ATTEND Obstetrics & Gynecology
DX: N63.42 Unspecified lump in left breast, subareolar (principal)

== ENCOUNTER 2021-08-23 08:12 | Outpatient (CLI) | payer MEDICAID ==
--- NOTE | 2021-08-23 09:50 | Mammography Report ---
BILATERAL DIGITAL DIAGNOSTIC MAMMOGRAM WITH CAD CONVENTIONAL, 08/23/2021 LEFT LIMITED BREAST ULTRASOUND CLINICAL INFORMATION / INDICATION: Area of PAIN TECHNIQUE: Digital bilateral mammographic imaging was performed. Limited ultrasound was performed. Th is examination was interpreted with the benefit of Computer-Aided Detection (CAD) analysis. COMPARISON: 12/06/2019 FINDINGS: Breast Density: The breasts are heterogeneously dense, which may obscure small masses. MAMMOGRAPHIC FINDINGS: No dominant mass, suspicious calcifications, or architectural distortion in ei ther breast. ULTRASOUND FINDINGS: Targeted ultrasound evaluation was performed of the area of interest. Ultrasou nd imaging of the left breast at the 1 and 2:00 position (area of pain) demonstrates normal fibroglan dular tissue without evidence of mass, focal fluid collection or architectural distortion. IMPRESSION: No mammographic or sonographic evidence of malignancy. Follow up recommendation: Routine yearly BI-RADS Category 1: Negative. A "normal" or negative report should not discourage follow up or biopsy of a clinically significant f inding. A written summary of these findings will be mailed to the patient. The patient will be entered into a mammography reporting system which will generate a reminder letter for the patient's next appointmen t at the appropriate interval. According to the [employer], yearly mammograms are recommended starting at age 40 and continuing as long as a woman is in good health. Breast MRI is recommended for women with an marcus roximately 20-25% or greater lifetime risk of breast cancer, including women with a strong family his tory of breast or ovarian cancer and women who have been treated for Hodgkin's disease. Signer Name: Brendan Toribio DO Signed: 08/23/2021 9:44 AM Workstation Name: [id number]
== END 2021-08-23 08:13 | disposition home or self-care (01) ==
LOC: SPVWC 08:12
PROVIDERS: ATTEND Obstetrics & Gynecology
DX: N63.20 Unspecified lump in the left breast, unspecified quadrant (principal); R92.8 Other abnormal and inconclusive findings on diagnostic imaging of breast
CPT/HCPCS: 77066